=== PATIENT | male | born 1965 | race Hispanic/Latino ===

== ENCOUNTER 2017-03-09 21:23 | Observation (INO) | payer MEDICAID ==
[2017-03-09 21:23] VITALS: BMI 24.5
--- NOTE | 2017-03-09 21:42 | ED PDOC ---
Arrival/HPI - General Historian: Patient, EMS - History of Present Illness Time/Duration: Other (tonight) Symptom Onset: Gradual Symptom Course: Unchanged Activities at Onset: Light <Сергей Copeland - Last Filed: 03/10/17 06:00> <Baudilio Beach - Last Filed: 03/10/17 07:15> - General Chief Complaint: Alcohol Ingestion Time Seen by Provider: 03/09/17 21:35 - History of Present Illness Narrative History of Present Illness (Text): 03/09/17 21:30 Tera Valenzuela is a 51 year old male, whose past medical history includes alcohol abuse, who presents to the emergency department brought in by EMS for public intoxication tonight. Patient admits to drinking vodka. Patient states he currently feels fine. Patient denies any fever, chills, chest pain, shortness of breath, abdominal pain, nausea, vomiting, diarrhea, urinary symptoms, back pain, neck pain, headache, dizziness, or any other complaints. ( Сергей Copeland) Past Medical History - Provider Review Nursing Documentation Reviewed: Yes - Infectious Disease Hx of Infectious Diseases: None - Tetanus Immunization Tetanus Immunization: Unknown - Cardiac Hx Cardiac Disorders: No - Pulmonary Hx Respiratory Disorders: Yes (SEASONAL ALLERGIES) Hx Tuberculosis: No - Neurological Hx Neurological Disorder: Yes HX Cerebrovascular Accident: No Hx Dizziness: No Hx Paralysis: No Hx Seizures: No - HEENT Hx HEENT Disorder: No Other/Comment: deviated septum, enlarged turbinates - Renal Hx Renal Disorder: No - Endocrine/Metabolic Hx Endocrine Disorders: No - Hematological/Oncological Hx Anemia: Yes - Integumentary Hx Dermatological Disorder: No - Musculoskeletal/Rheumatological Hx Musculoskeletal Disorders: No - Gastrointestinal Hx Gastrointestinal Disorders: No - Genitourinary/Gynecological Hx Genitourinary Disorders: No - Psychiatric Hx Anxiety: No Hx Bipolar Disorder: No Hx Depression: No Hx Substance Use: No - Past Surgical History Past Surgical History: No Previous - Anesthesia Hx Anesthesia: Yes Hx Anesthesia Reactions: No Hx Malignant Hyperthermia: No - Suicidal Assessment Feels Threatened In Home Enviroment: No <Сергей Copeland - Last Filed: 03/10/17 06:00> Family/Social History - Physician Review Nursing Documentation Reviewed: Yes Family/Social History: Unknown Family HX Smoking Status: Never Smoked Hx Alcohol Use: Yes Frequency of alcohol use: Daily Hx Substance Use: No Hx Substance Use Treatment: No <Сергей Copeland - Last Filed: 03/10/17 06:00> Allergies/Home Meds <Сергей Copeland - Last Filed: 03/10/17 06:00> <Baudilio Beach - Last Filed: 03/10/17 07:15> Allergies/Adverse Reactions: Allergies No Known Allergies Allergy (Verified 03/09/17 21:30) hayfever allergies Home Medications: Home Meds Medication Instructions Recorded Confirmed Trazodone HCl 50 mg PO HS PRN 12/12/16 03/09/17 Review of Systems - Physician Review All systems were reviewed & negative as marked: Yes - Review of Systems Constitutional: Normal. absent: Fevers Eyes: Normal ENT: Normal Respiratory: Normal. absent: SOB, Cough Cardiovascular: Normal. absent: Chest Pain Gastrointestinal: Normal. absent: Abdominal Pain, Diarrhea, Nausea, Vomiting Genitourinary Male: Normal. absent: Dysuria, Frequency, Hematuria, Urinary Output Changes Musculoskeletal: Normal. absent: Back Pain, Neck Pain Skin: Normal. absent: Rash Neurological: Normal. absent: Headache, Dizziness Endocrine: Normal Hemo/Lymphatic: Normal Psychiatric: Other (+alcohol intoxication) <Сергей Copeland - Last Filed: 03/10/17 06:00> Physical Exam Vital Signs Reviewed: Yes Temperature: Afebrile Blood Pressure: Normal Pulse: Regular Respiratory Rate: Normal Appearance: Positive for: Well-Appearing, Comfortable Pain Distress: None Mental Status: Positive for: Alert and Oriented X 3 - Systems Exam Head: Present: Atraumatic, Normocephalic Pupils: Present: PERRL Extroacular Muscles: Present: EOMI Conjunctiva: Present: Normal Mouth: Present: Moist Mucous Membranes Neck: Present: Normal Range of Motion Respiratory/Chest: Present: Clear to Auscultation, Good Air Exchange. No: Respiratory Distress, Accessory Muscle Use Cardiovascular: Present: Regular Rate and Rhythm, Normal S1, S2. No: Murmurs Abdomen: Present: Normal Bowel Sounds. No: Tenderness, Distention, Peritoneal Signs Back: Present: Normal Inspection Upper Extremity: Present: Normal Inspection. No: Cyanosis, Edema Lower Extremity: Present: Normal Inspection. No: Edema Neurological: Present: GCS=15, CN II-XII Intact, Speech Normal Skin: Present: Warm, Dry, Normal Color. No: Rashes Psychiatric: Present: Alert, Oriented x 3, Normal Insight, Normal Concentration <Сергей oCpeland - Last Filed: 03/10/17 06:00> Medical Decision Making - EKG Interpretation Interpreted by ED Physician: Yes Type: 12 lead EKG <Сергей Copeland - Last Filed: 03/10/17 06:00> <Baudilio Beach - Last Filed: 03/10/17 07:15> ED Course and Treatment: 03/09/17 21:30 Impression: 51 year old male brought in for alcohol intoxication. Differential Diagnosis included but are not limited to: alcohol intoxication Plan: -- EKG -- Labs, alcohol level -- Reassess and disposition Prior Visits: Notes and results from previous visits were reviewed. On 12/21/2015, pt was seen in the emergency department for alcohol detox. Pt was admitted to the hospital for further evaluation. Progress Notes: (Сергей Copeland) 03/10/17 07:13 Signed out to me by , waiting for the patient to sober up. Patient is awake alert and wandering about the department in no distress. He states he is an alcoholic who stopped drinking, but relapsed. He will be discharged home. Follow-up with PMD. (Baudilio Beach) - Medication Orders Current Medication Orders: Discontinued Medications Lorazepam (Ativan) 2 mg IM ONCE ONE Stop: 03/10/17 00:51 Last Admin: 03/10/17 00:57 Dose: 2 mg Potassium Chloride (K-Dur 20 Meq Er Tab) 40 meq PO STAT STA Stop: 03/10/17 00:13 Last Admin: 03/10/17 00:57 Dose: 40 meq ED OBSERVATION Date of observation admission: 03/09/17 Time of observation admission: 21:45 <Сергей Copeland - Last Filed: 03/10/17 06:00> <Baudilio Beach - Last Filed: 03/10/17 07:15> - Observation admission statement Patient is being placed in observation because:: alcohol intoxication (Сергей [place]) - Goals of Observation Goals of observation are:: sobriety, observe for signs of withdrawal (Сергей Copeland) - Progress Note Progress Note: 03/09/17 21:45 Pt brought in for alcohol intoxication. Will observe pending sobriety. Reviewed EKG, sinus tachycardia at 106. No ST-segment elevations or depressions , no T-wave inversions, normal intervals. 03/09/17 23:45 Pt resting comfortably, no new complaints. 03/10/17 00:12 Pt with potassium of 3.0, K-dur ordered. 03/10/17 00:20 Pt yelling, insulting staff, attempting to abscond from ER. Code Thony called. Pt placed in restraints and medicated with Ativan. 03/10/17 02:20 Pt sleeping currently, in no acute distress. 03/10/17 04:20 Pt sleeping currently, in no acute distress. 03/10/17 06:20 Pt resting comfortably, no new complaints. 03/10/17 07:[address] Beach, pending sobriety, re-evaluation, and final disposition. (Сергей Copeland) 03/10/17 06:57 Case signed out to me by , pending sobriety, reevaluation and disposition. Patient resting comfortably with stable vitals. (Baudilio Beach) - Scribe Statement The provider has reviewed the documentation as recorded by the Scribe <Сергей Copeland - Last Filed: 03/10/17 06:00> <Baudilio Beach - Last Filed: 03/10/17 07:15> - Scribe Statement Terra Zee (Сергей Copeland) Provider Attestation: All medical record entries made by the Scribe were at my direction and personally dictated by me. I have reviewed the chart and agree that the record accurately reflects my personal performance of the history, physical exam, medical decision making, and the department course for this patient. I have also personally directed, reviewed, and agree with the discharge instructions and disposition. (Сергей Copeland) Disposition/Present on Arrival - Present on Arrival History of DVT/PE: No History of Uncontrolled Diabetes: No Urinary Catheter: No History of Decub. Ulcer: No History Surgical Site Infection Following: None <Сергей Copeland - Last Filed: 03/10/17 06:00> - Present on Arrival Any Indicators Present on Arrival: No History of DVT/PE: No History of Uncontrolled Diabetes: No Urinary Catheter: No History of Decub. Ulcer: No - Disposition Have Diagnosis and Disposition been Completed?: Yes Disposition Time: 07:14 Patient Plan: Discharge <Baudilio Beach - Last Filed: 03/10/17 07:15> - Disposition Diagnosis: Alcohol intoxication, Alcohol dependence, Alcohol abuse Disposition: HOME/ ROUTINE Condition: IMPROVED
[2017-03-09 22:18] VITALS: TEMP 98.1
[2017-03-09 22:49] LABS: HEMOGLOBIN 15.3 gm/dL (14.0-18.0); MEAN CELL VOLUME 91.6 fL (80.0-105.0); MEAN CORPUSCULAR HEMOGLOBIN 32.9 pg (25.0-35.0); MEAN CORPUSCULAR HGB CONC 35.9 g/dl (31.0-37.0); MEAN PLATELET VOLUME 8.3 fl (7.0-11.0); RBC 4.65 10^6/uL (3.5-6.1); RED CELL DISTRIBUTION WIDTH 12.9 % (11.5-14.5); WHITE BLOOD COUNT 5.4 10^3/ul (4.5-11.0)
[2017-03-09 22:53] LABS: ALB/GLOB RATIO 1.4 (1.1-1.8); ALBUMIN 4.1 g/dL (3.0-4.8); ALT/SGPT 32 U/L (7-56); AST/SGOT 31 U/L (15-59); BLOOD UREA NITROGEN 21 mg/dL (7-21); CALCIUM 8.8 mg/dL (8.4-10.5); GFR AFRICAN-AMERICAN > 60; GFR NON-AFRICAN AMERICAN > 60
[2017-03-10] MEDS ORDERED: Potassium Chloride 20 mEq ER Tab PO STA (00:12)
[2017-03-10 07:10] VITALS: BP 142/89; PULSE 100; RESP 18; O2SAT 95
--- NOTE | 2017-03-10 11:24 | CARD ---
APPROVED REPORT EKG Measurement Heart [id number] <Conclusion> Sinus tachycardia Otherwise normal ECG
== END 2017-03-10 07:19 | disposition home or self-care (01) ==
LOC: ED 21:23 → EROBSV 21:45
PROVIDERS: ADMIT Emergency Medicine; ATTEND Emergency Medicine
DX: F10.229 Alcohol dependence with intoxication, unspecified (principal); Y90.8 Blood alcohol level of 240 mg/100 ml or more
CPT/HCPCS: 36415; 80053; 80320; 85027; 93005; 96372; 99285; G0378; J2060

== ENCOUNTER 2017-05-13 14:31 | Inpatient (IN) | payer MEDICAID ==
[2017-05-13 14:41] VITALS: BMI 24.7
[2017-05-13] MEDS ORDERED: Sodium Chloride 0.9% 1,000 ML IV STA (15:05)
--- NOTE | 2017-05-13 15:12 | RAD ---
HISTORY: ETOH WITHDRAWAL COMPARISON: Chest x-ray performed 12/08/16 TECHNIQUE: Chest, one view. FINDINGS: LUNGS: No focal consolidation. Please note that chest x-ray has limited sensitivity for the detection of pulmonary masses. PLEURA: No significant pleural effusion identified. No definite pneumothorax . CARDIOVASCULAR: The cardiomediastinal silhouette appears within normal limits of size. OSSEOUS STRUCTURES: No acute osseous abnormality identified. VISUALIZED UPPER ABDOMEN: Unremarkable. OTHER FINDINGS: None. IMPRESSION: No focal consolidation, significant pleural effusion, or definite pneumothorax identified.
[2017-05-13] MEDS ORDERED: Multivitamin (MVI) 10 ML, Thiamine 100 MG, Folic Acid 1 MG in Sodium Chloride 0.9% 1,00... IV ONE ×2 (15:16→21:13)
[2017-05-13 15:33] LABS: BASO # 0.02 K/mm3 (0.0-2.0); BASO % 0.3 % (0.0-3.0); EOS % 0.3 % (1.5-5.0); GRAN # 5.51 (1.4-6.5); GRAN % 84.3 % (50.0-68.0); HEMATOCRIT 41.9 % (42.0-52.0); LYMPH # 0.6 (1.2-3.4); LYMPH % 8.7 % (22.0-35.0); MEAN CELL VOLUME 87.5 fl (80.0-105.0); MEAN CORPUSCULAR HGB CONC 37.7 g/dl (31.0-37.0); MEAN PLATELET VOLUME 8.7 fl (7.0-11.0); MONO # 0.4 (0.1-0.6); MONO % 6.4 % (1.0-6.0); RED CELL DISTRIBUTION WIDTH 11.8 % (11.5-14.5); WHITE BLOOD COUNT 6.5 10^3/ul (4.5-11.0)
--- NOTE | 2017-05-13 15:39 | ED PDOC ---
Arrival/HPI - General Chief Complaint: Alcohol Ingestion Time Seen by Provider: 05/13/17 14:52 Historian: Patient - History of Present Illness Narrative History of Present Illness (Text): 05/13/17 15:22 51yr old male with hx of depression and alcohol abuse presents today with visual and auditory hallucinations. pt states he was on a drinking binge and stopped drinking on . pt states for the past 3 days he has been having vomiting/diarrhea and the shakes. pt states he hasnt been sleeping for the past 3 days. pt denies fever/chills. denies cp or sob. denies tremors or weakness. pt states last night he started to notice auditory and visual hallucinations. denies any recent head injury. Symptom Onset: Gradual Symptom Course: Worsening Past Medical History - Provider Review Nursing Documentation Reviewed: Yes - Travel History Have you recently traveled outside [place] w/in the past 3 mons?: No - Infectious Disease Hx of Infectious Diseases: None - Tetanus Immunization Tetanus Immunization: Unknown - Cardiac Hx Cardiac Disorders: No - Pulmonary Hx Respiratory Disorders: Yes (SEASONAL ALLERGIES) Hx Tuberculosis: No - Neurological Hx Neurological Disorder: No HX Cerebrovascular Accident: No Hx Dizziness: No Hx Paralysis: No Hx Seizures: No - HEENT Hx HEENT Disorder: Yes Other/Comment: deviated septum, enlarged turbinates - Renal Hx Renal Disorder: No - Endocrine/Metabolic Hx Endocrine Disorders: No - Hematological/Oncological Hx Blood Disorders: Yes Hx Anemia: Yes - Integumentary Hx Dermatological Disorder: No - Musculoskeletal/Rheumatological Hx Musculoskeletal Disorders: No - Gastrointestinal Hx Gastrointestinal Disorders: No - Genitourinary/Gynecological Hx Genitourinary Disorders: No - Psychiatric Hx Anxiety: No Hx Bipolar Disorder: No Hx Depression: No Hx Substance Use: No - Past Surgical History Past Surgical History: No Previous - Anesthesia Hx Anesthesia: Yes Hx Anesthesia Reactions: No Hx Malignant Hyperthermia: No - Suicidal Assessment Feels Threatened In Home Enviroment: No Family/Social History - Physician Review Nursing Documentation Reviewed: Yes Family/Social History: Unknown Family HX Smoking Status: Never Smoked Hx Alcohol Use: Yes Hx Substance Use: No Hx Substance Use Treatment: No Allergies/Home Meds Allergies/Adverse Reactions: Allergies No Known Allergies Allergy (Verified 05/13/17 14:41) hayfever allergies Home Medications: Home Meds Medication Instructions Recorded Confirmed Trazodone HCl 150 mg PO HS PRN 12/12/16 05/13/17 Divalproex [Depakote DR] 1 tab PO DAILY 05/13/17 05/13/17 Fluticasone Propionate [Flonase] 1 spr IH DAILY 05/13/17 05/13/17 Ibuprofen [Motrin Tab] 600 mg PO DAILY 05/13/17 05/13/17 Loratadine [Claritin] 1 tab PO DAILY 05/13/17 05/13/17 Review of Systems - Review of Systems Constitutional: absent: Fatigue, Fevers ENT: absent: Sinus Congestion Respiratory: absent: SOB, Cough Cardiovascular: absent: Chest Pain, Palpitations Gastrointestinal: absent: Abdominal Pain, Diarrhea, Nausea, Vomiting Genitourinary Male: absent: Dysuria, Frequency, Hematuria Musculoskeletal: absent: Arthralgias, Back Pain, Neck Pain Skin: absent: Rash, Pruritis Neurological: absent: Headache, Dizziness Psychiatric: Depression. absent: Anxiety, Suicidal Ideation Physical Exam Vital Signs Reviewed: Yes Vital Signs Temp Pulse Resp BP Pulse Ox 05/13/17 19:04 105 H 20 154/98 H 96 05/13/17 17:12 88 18 147/90 98 05/13/17 14:52 97.7 F 120 H 18 132/90 95 Temperature: Afebrile Blood Pressure: Normal Pulse: Tachycardic Respiratory Rate: Normal Appearance: Positive for: Well-Appearing, Non-Toxic, Comfortable Pain Distress: None Mental Status: Positive for: Alert and Oriented X 3 - Systems Exam Head: Present: Atraumatic Mouth: Present: Moist Mucous Membranes, Other (no tongue fasciculations) Neck: Present: Normal Range of Motion Respiratory/Chest: Present: Clear to Auscultation, Good Air Exchange. No: Respiratory Distress, Accessory Muscle Use Cardiovascular: Present: Regular Rate and Rhythm, Normal S1, S2. No: Murmurs Abdomen: Present: Normal Bowel Sounds. No: Tenderness, Distention, Peritoneal Signs, Rebound, Guarding Back: Present: Normal Inspection Upper Extremity: Present: Normal ROM Lower Extremity: Present: Normal ROM Neurological: Present: GCS=15, Speech Normal, Gait Normal Skin: Present: Warm, Dry, Normal Color. No: Rashes Psychiatric: Present: Alert, Oriented x 3, Depressed Mood, Delusional, Hallucinations. No: Suicidal Ideation Medical Decision Making ED Course and Treatment: 05/13/17 16:06 Patient is nontoxic well-appearing in no distress. pt tachycardic on initial vitals. CBC WNL CMP WNL Tylenol WNL Salicylate WNL Alcohol level WNL Urine drug screen wnl UA; wnl cxr: wnl ekg sinus tachycardia at [address] elevations no QT prolongation pt given normal saline IV bolus and banana bag in the emergency room. Patient remains slightly tachycardic. Case was discussed with Danilo ford who discussed the case with Dr. Estrada. The patient should be treated for alcohol withdrawal with delirium and then can have evaluation by psychiatry. Due to patient's history of alcohol abuse/binging with recent sudden stoppage patient now with delirium. patient to be admitted to medicine for alcohol withdrawal with delirium. case discussed with dr. reed; accepts admission to tele for alcohol withdrawal with delirium and dehydration. ativan ordered IV. Impression; alcohol withdrawal, delirium, dehydration admit to tele. - Lab Interpretations Lab Results: 05/13/17 15:23 05/13/17 15:23 Lab Results 05/13/17 17:10: Urine Opiates Screen Negative, Urine Methadone Screen Negative, Ur Barbiturates Screen Negative, Ur Phencyclidine Scrn Negative, Ur Amphetamines Screen Negative, U Benzodiazepines Scrn Negative, U Oth Cocaine Metabols Negative, U Cannabinoids Screen Negative 05/13/17 17:10: Urine Color Yellow, Urine Appearance Clear, Urine pH 6.0, Ur Specific Cando 1.015, Urine Protein Trace H, Urine Glucose (UA) Negative, Urine Ketones Negative, Urine Blood Small H, Urine Nitrate Negative, Urine Bilirubin Negative, Urine Urobilinogen 0.2, Ur Leukocyte Esterase Negative, Urine RBC 1 - 3, Urine WBC 2 - 5, Ur Epithelial Cells 3 - 4, Urine Bacteria Mod 05/13/17 15:23: Valproic Acid 28 L 05/13/17 15:23: Alcohol, Quantitative < 10 05/13/17 15:23: Salicylates < 1 L, Acetaminophen < 10.0 L 05/13/17 15:23: WBC 6.5 D, RBC 4.79, Hgb 15.8, Hct 41.9 L, MCV 87.5, MCH 33.0, MCHC 37.7 H, RDW 11.8, Plt Count 152, MPV 8.7, Gran % 84.3 H, Lymph % (Auto) 8.7 L, [place] % (Auto) 6.4 H, Eos % (Auto) 0.3 L, Baso % (Auto) 0.3, Gran # 5.51, Lymph # 0.6 L, [place] # 0.4, Eos # 0.0, Baso # 0.02 05/13/17 15:23: Sodium 131 L, Potassium 3.3 L, Chloride 97 L, Carbon Dioxide 23 , Anion Gap 14, BUN 30 H, Creatinine 0.9, Est GFR ( Amer) > 60, Est GFR ( Non-Af Amer) > 60, Random Glucose 162 H, Calcium 9.1, Total Bilirubin 1.0, AST 48, ALT 43, Alkaline Phosphatase 66, Lactate Dehydrogenase 599, Total Creatine Kinase 384 H, CK-MB (CK-2) 3.7 H, CK-MB (CK-2) % Cancelled, Troponin I < 0.01, Total Protein 7.7, Albumin 4.6, Globulin 3.2, Albumin/Globulin Ratio 1.4 - RAD Interpretation Radiology Orders: 05/13/17 14:53 CHEST PORTABLE [RAD] Stat - Medication Orders Current Medication Orders: Divalproex Sodium (Depakote Dr (*Bid*)) 250 mg PO DAILY ALTHEA PRN Reason: Protocol Folic Acid (Folic Acid) 1 mg PO DAILY ALTHEA Lorazepam (Ativan) 2 mg IVP Q6H PRN; Protocol PRN Reason: Symptoms of alcohol withdrawl Thiamine HCl (Vitamin B1 Tab) 100 mg PO DAILY ALTHEA Discontinued Medications Diazepam (Valium) 5 mg PO STAT STA PRN Reason: Protocol Stop: 05/13/17 20:14 Sodium Chloride (Sodium Chloride 0.9%) 1,000 mls @ 999 mls/hr IV .Q1H1M STA Stop: 05/13/17 16:05 Last Admin: 05/13/17 15:27 Dose: 999 mls/hr Multivitamins/Vitamin C 10 ml/Thiamine HCl 100 mg/ Folic Acid 1 mg/ Sodium Chloride 1,011.2 mls @ 1,000 mls/hr IV .Q1H1M ONE Stop: 05/13/17 16:16 Last Admin: 05/13/17 16:02 Dose: 1,000 mls/hr Disposition/Present on Arrival - Present on Arrival Any Indicators Present on Arrival: No History of DVT/PE: No History of Uncontrolled Diabetes: No Urinary Catheter: No History of Decub. Ulcer: No History Surgical Site Infection Following: None - Disposition Have Diagnosis and Disposition been Completed?: Yes Diagnosis: Alcohol withdrawal delirium Disposition: HOSPITALIZED Disposition Time: 20:36 Patient Plan: Admission, Telemetry Condition: FAIR
[2017-05-13 15:46] LABS: ALB/GLOB RATIO 1.4 (1.1-1.8); ALKALINE PHOSPHATASE 66 U/L (38-126); ALT/SGPT 43 U/L (7-56); AST/SGOT 48 U/L (17-59); BLOOD UREA NITROGEN 30 mg/dL (7-21); CALCIUM 9.1 mg/dL (8.4-10.5); CARBON DIOXIDE 23 mmol/L (21-33); CHLORIDE 97 mmol/L (98-107); GFR AFRICAN-AMERICAN > 60; GLUCOSE,RANDOM 162 mg/dL (70-110); POTASSIUM 3.3 mmol/L (3.6-5.0); SODIUM 131 mmol/L (132-148); TOTAL PROTEIN 7.7 g/dL (5.8-8.3)
[2017-05-13 15:58] LABS: TROPONIN I < 0.01 ng/mL
--- NOTE | 2017-05-13 16:17 | CARD ---
APPROVED REPORT EKG Measurement Heart [id number] <Conclusion> Sinus tachycardia Nonspecific ST abnormality Abnormal ECG
[2017-05-13 17:16] LABS: URINE BILIRUBIN NEGATIVE (NEGATIVE); URINE BLOOD SMALL (NEGATIVE); URINE GLUCOSE (UA) NEGATIVE (NEGATIVE); URINE KETONE NEGATIVE (NEGATIVE); URINE LEUKOCYTE ESTERASE NEGATIVE Leu/uL (NEGATIVE); URINE PROTEIN TRACE mg/dL (<30 mg/dL); URINE UROBILINOGEN 0.2 E.U./dL (<1 E.U./dL)
[2017-05-13 17:31] LABS: URINE APPEARANCE CLEAR (CLEAR); URINE COLOR YELLOW (YELLOW)
[2017-05-13 17:37] LABS: URINE BACTERIA MOD (NEG)
--- NOTE | 2017-05-13 20:36 | CP.PCM.HP ---
<Esthela Farias - Last Filed: 05/13/17 21:14> History of Present Illness - History of Present Illness History of Present Illness: 51 year old bipolar male with a history of alcohol/narcotic use who presents with 4 days of not sleeping after going on alcohol binge from the Saturday of last week to , drinking about 2 gallons of vodka total, after being sober from alcohol for 50 some days. Patient is accompanied by a friend. Patient admits to visual hallucinations with some auditory hallucinations, with some tremors in the past 24 hours. Patient further states he takes Vivitrol for curbing his alcoholic (and quite possibly opiod/narcotic) tendency. He also states he is bipolar and takes Depakote for that, but at the same time has been taking Trazadone for insomnia. PMD: Doesn't know name, but goes to a clinic on [place] (or 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 Present on Admission - Present on Admission Any Indicators Present on Admission: No Review of Systems - Constitutional Constitutional: absent: Night Sweats Past Patient History - Infectious Disease Hx of Infectious Diseases: None - Tetanus Immunizations Tetanus Immunization: Unknown - Past Medical History & Family History Past Medical History?: Yes - Past Social History Smoking Status: Never Smoked - CARDIAC Hx Cardiac Disorders: No Hx Hypertension: No - PULMONARY Hx Tuberculosis: No - NEUROLOGICAL HX Cerebrovascular Accident: No Hx Seizures: No - HEENT Hx HEENT Problems: Yes Other/Comment: deviated septum, enlarged turbinates - RENAL Hx Chronic Kidney Disease: No - ENDOCRINE/METABOLIC Hx Endocrine Disorders: No - HEMATOLOGICAL/ONCOLOGICAL Hx Cancer: No Hx Human Immunodeficiency Virus (HIV): No - INTEGUMENTARY Hx Dermatological Problems: No - MUSCULOSKELETAL/RHEUMATOLOGICAL Hx Musculoskeletal Disorders: No - GASTROINTESTINAL Hx Gastrointestinal Disorders: No - GENITOURINARY/GYNECOLOGICAL Hx Sexually Transmitted Disorders: No - PSYCHIATRIC Hx Anxiety: No Hx Bipolar Disorder: No Hx Depression: No Hx Substance Use: No - SURGICAL HISTORY Hx Surgeries: Yes - ANESTHESIA Hx Anesthesia: Yes Hx Anesthesia Reactions: No Hx Malignant Hyperthermia: No Meds Allergies/Adverse Reactions: Allergies Allergy/AdvReac Type Severity Reaction Status Date / Time No Known Allergies Allergy Verified 05/13/17 22:45 Physical Exam - Constitutional Appears: Non-toxic, Other (emotional) - Head Exam Head Exam: ATRAUMATIC, NORMOCEPHALIC - Eye Exam Eye Exam: EOMI, Normal appearance, PERRL - ENT Exam ENT Exam: Mucous Membranes Moist, Normal Oropharynx - Neck Exam Neck exam: Positive for: Normal Inspection - Respiratory Exam Respiratory Exam: Clear to Auscultation Bilateral, NORMAL BREATHING PATTERN. absent: Wheezes - Cardiovascular Exam Cardiovascular Exam: RRR, +S1, +S2 - GI/Abdominal Exam GI & Abdominal Exam: Normal Bowel Sounds, Soft. absent: Rebound, Rigid - Exam Exam: NORMAL INSPECTION. absent: Scrotal Swelling, Uretheral Discharge - Extremities Exam Extremities exam: Positive for: normal capillary refill, normal inspection. Negative for: calf tenderness, joint swelling - Back Exam Back exam: NORMAL INSPECTION. absent: CVA tenderness (L), CVA tenderness (R) - Neurological Exam Neurological exam: CN II-XII Intact, Oriented x3, Reflexes Normal - Psychiatric Exam Psychiatric exam: Manic - Skin Skin Exam: Dry, Intact, Normal Color, Warm Results - Vital Signs Recent Vital Signs: Last Vital Signs Temp 97.7 F 05/13/17 14:52 Pulse 105 H 05/13/17 19:04 Resp 20 05/13/17 19:04 BP 154/98 H 05/13/17 19:04 Pulse Ox 96 05/13/17 19:04 - Labs Result Diagrams: 05/13/17 15:23 05/13/17 15:23 - EKG Data EKG Interpreted by: Myself EKG shows normal: Sinus rhythm Rate: Normal Assessment & Plan - Assessment and Plan (Free Text) Assessment: Alcohol withdrawal (72-96 hour) in a bipolar patient who presents with visual and auditory hallucinations for one day and reported tremors not evident on exam. Plan: 1) Alcohol withdrawal in bipolar patent with no history of seizures - Serum alcohol less than 10 mg/dL - Serum Salicylate not elevated - Serum Valproic Acid detectable - EKG (-) for arrhythmia - CXR shows no acute findings - 1 L of NS with multivitamin solution given in ED, i.e. Bananna Bag - 2 mg q6h Lorazepam IVP PRN for alcohol withdrawal symptoms - [facility] protocol, seizure precautions, telemetry monitoring - Psychiatry consulted Dr. Walker 2) Hyponatremia: 131 - NS at 120 ml/hr 3) Hypokalemia: 3.3 - Serum Magnesium ordered - Potassium 20 mEq PO given in ED, will replete based on AM labs 4) FEN Regular Diet NS 120 ml/hr Thiamine 100 mg PO starting in AM Folate 1 mg PO daily Multivitamin 1 tab PO daily DVT/GI prophylaxis: no need at this time - Date & Time Date: 05/13/17 Time: 21:22 <Leandra Valdes - Last Filed: 05/13/17 23:56> Results - Vital Signs Recent Vital Signs: Last Vital Signs Temp 97.7 F 05/13/17 14:52 Pulse 98 H 05/13/17 20:51 Resp 18 05/13/17 20:51 BP 150/95 H 05/13/17 20:51 Pulse Ox 98 05/13/17 20:51 - Labs Result Diagrams: 05/13/17 15:23 05/13/17 21:45 Labs: Laboratory Results - last 24 hr 05/13/17 21:45 Sodium 133 Potassium 3.6 Chloride 100 Carbon Dioxide 22 Anion Gap 15 BUN 24 H Creatinine 0.8 Est GFR ( Amer) > 60 Est GFR (Non-Af Amer) > 60 Random Glucose 102 Calcium 8.1 L Total Bilirubin 0.8 AST 47 ALT 35 Alkaline Phosphatase 52 Total Protein 6.5 Albumin 3.8 Globulin 2.7 Albumin/Globulin Ratio 1.4 Attending/Attestation - Attestation I have personally seen and examined this patient.: Yes I have fully participated in the care of the patient.: Yes I have reviewed all pertinent clinical information: Yes Notes (Text): 05/13/17 23:49 Addendum: O/E abdomen is non tender. Ext: no cyanosis,clubbing or edema EKG:Sinus tach 107/min Assessment:includes Hyponatremia and dehydration . Plan: includes GI and DVT prophylaxis as ordered.
[2017-05-13] MEDS ORDERED: Potassium Chloride 20 mEq ER Tab PO STA (20:37)
[2017-05-13] MEDS ORDERED: Sodium Chloride 0.9% 100 ML IV SCH (20:49)
[2017-05-13] MEDS ORDERED: Sodium Chloride 0.9% 1,000 ML IV SCH (21:15)
[2017-05-13 22:11] LABS: ALB/GLOB RATIO 1.4 (1.1-1.8); ALKALINE PHOSPHATASE 52 U/L (38-126); ALT/SGPT 35 U/L (7-56); AST/SGOT 47 U/L (17-59); BILIRUBIN,TOTAL 0.8 mg/dL (0.2-1.3); BLOOD UREA NITROGEN 24 mg/dL (7-21); CALCIUM 8.1 mg/dL (8.4-10.5); CARBON DIOXIDE 22 mmol/L (21-33); CHLORIDE 100 mmol/L (98-107); GFR AFRICAN-AMERICAN > 60; GLUCOSE,RANDOM 102 mg/dL (70-110); POTASSIUM 3.6 mmol/L (3.6-5.0); SODIUM 133 mmol/L (132-148); TOTAL PROTEIN 6.5 g/dL (5.8-8.3)
[2017-05-14 07:05] LABS: BASO # 0.02 K/mm3 (0.0-2.0); BASO % 0.5 % (0.0-3.0); EOS # 0.1 (0.0-0.7); EOS % 2.9 % (1.5-5.0); GRAN # 2.55 (1.4-6.5); GRAN % 67.7 % (50.0-68.0); HEMATOCRIT 40.4 % (42.0-52.0); LYMPH # 0.8 (1.2-3.4); LYMPH % 20.4 % (22.0-35.0); MEAN CELL VOLUME 89.8 fl (80.0-105.0); MEAN CORPUSCULAR HEMOGLOBIN 31.8 pg (25.0-35.0); MEAN CORPUSCULAR HGB CONC 35.4 g/dl (31.0-37.0); MEAN PLATELET VOLUME 8.8 fl (7.0-11.0); MONO # 0.3 (0.1-0.6); MONO % 8.5 % (1.0-6.0); RED CELL DISTRIBUTION WIDTH 12.1 % (11.5-14.5); WHITE BLOOD COUNT 3.8 10^3/ul (4.5-11.0)
--- NOTE | 2017-05-14 07:36 | CP.PCM.PN ---
<Esthela Farias - Last Filed: 05/14/17 14:44> Subjective - Date & Time of Evaluation Date of Evaluation: 05/14/17 Time of Evaluation: 07:35 - Subjective Subjective: Esthela Farias DO, PGY-1, Hospitalist Service Patient seen and examined at bedside. Patient is sleeping, snoring. Overnight, nurse reports a total of 4 mg of IVP Ativan given for alcohol withdrawal symptoms. Patient slept after being given 50 mg of Benadryl. Patient this morning reports he does not have tremors, visual, or auditory hallucinations. Objective - Vital Signs/Intake and Output Vital Signs (last 24 hours): Temp Pulse Resp BP Pulse Ox 97.8 F 90 20 108/82 98 05/14/17 05:45 05/14/17 05:45 05/14/17 05:45 05/14/17 05:45 05/14/17 05:45 Intake and Output: 05/14/17 05/14/17 06:59 18:59 Intake Total 1240 Balance 1240 - Medications Medications: Current Medications Chlordiazepoxide (Librium) 25 mg PO Q8 ALTHEA PRN Reason: Protocol Last Admin: 05/14/17 05:14 Dose: 25 mg Divalproex Sodium (Depakote Dr (*Bid*)) 250 mg PO DAILY [facility] PRN Reason: Protocol Enoxaparin Sodium (Lovenox) 40 mg SC DAILY [facility] PRN Reason: Protocol Folic Acid (Folic Acid) 1 mg PO DAILY ALTHEA Lorazepam (Ativan) 2 mg IVP Q6H PRN; Protocol PRN Reason: Symptoms of alcohol withdrawl Last Admin: 05/14/17 02:16 Dose: 2 mg Pantoprazole Sodium (Protonix Ec Tab) 40 mg PO DAILY ALTHEA Thiamine HCl (Vitamin B1 Tab) 100 mg PO DAILY ALTHEA - Labs Labs: 05/14/17 05:15 05/13/17 21:45 - Constitutional Appears: Well, No Acute Distress - Head Exam Head Exam: ATRAUMATIC, NORMOCEPHALIC - Eye Exam Eye Exam: EOMI, Normal appearance, PERRL - ENT Exam ENT Exam: Mucous Membranes Moist, Normal Oropharynx - Neck Exam Neck Exam: Normal Inspection - Respiratory Exam Respiratory Exam: Clear to Ausculation Bilateral, NORMAL BREATHING PATTERN. absent: Wheezes - Cardiovascular Exam Cardiovascular Exam: RRR, +S1, +S2 - GI/Abdominal Exam GI & Abdominal Exam: Soft, Normal Bowel Sounds. absent: Tenderness, Rebound - Extremities Exam Extremities Exam: Normal Capillary Refill, Normal Inspection. absent: Calf Tenderness, Joint Swelling - Back Exam Back Exam: NORMAL INSPECTION. absent: CVA tenderness (L), CVA tenderness (R) - Neurological Exam Neurological Exam: CN II-XII Intact, Oriented x3 - Psychiatric Exam Psychiatric exam: Normal Affect, Normal Mood - Skin Skin Exam: Dry, Intact, Normal Color, Warm Assessment and Plan - Assessment and Plan (Free Text) Assessment: 51 year old with a past medical history of alcohol abuse, bipolar disorder, and possible opiod dependence who presents with alcohol withdrawal (last drink 3.5 days from Day Of Admission) in a bipolar patient who presented with one day of tremors, visual and auditory hallucinations. Plan: 1) Alcohol withdrawal - 25 mg Librium q8h ALTHEA - 1 mg Ativan q6h PRN for MENA - Thiamine 100 mg, Folate 1 mg, MV PO - [facility] protocol, seizure precautions, telemetry monitoring - Psychiatry consulted Dr. Everett: left message with nurse on 5B. 2) Hyponatremia, resolved will continue to monitor via daily CMP. 3) Bipolar Disorder: psychiatry consulted, Dr. Everett - 250 Depakote BID 4) WBC and platelets dropped somewhat, likely alcohol-related, but will change discontinue heparin and protonix at this time 5) DVT/GI prophylaxis: SCD and Pepcid <Anant Lopez - Last Filed: 05/14/17 15:07> Objective - Vital Signs/Intake and Output Vital Signs (last 24 hours): Temp Pulse Resp BP Pulse Ox 98.6 F 97 H 20 131/88 98 05/14/17 12:00 05/14/17 12:00 05/14/17 12:00 05/14/17 12:00 05/14/17 05:45 Intake and Output: 05/14/17 05/14/17 06:59 18:59 Intake Total 1240 Balance 1240 - Medications Medications: Current Medications Chlordiazepoxide (Librium) 25 mg PO Q8 ALTHEA PRN Reason: Protocol Last Admin: 05/14/17 14:47 Dose: Not Given Divalproex Sodium (Depakoalexei Yanez (*Bid*)) 250 mg PO DAILY [facility] PRN Reason: Protocol Last Admin: 05/14/17 09:40 Dose: 250 mg Famotidine (Pepcid) 40 mg PO HS ALTHEA Folic Acid (Folic Acid) 1 mg PO DAILY [facility] Last Admin: 05/14/17 09:40 Dose: 1 mg Lorazepam (Ativan) 1 mg IVP Q6H PRN; Protocol PRN Reason: Symptoms of alcohol withdrawl Thiamine HCl (Vitamin B1 Tab) 100 mg PO DAILY [facility] Last Admin: 05/14/17 09:40 Dose: 100 mg - Labs Labs: 05/14/17 05:15 05/14/17 05:15 Attending/Attestation - Attestation I have personally seen and examined this patient.: Yes I have fully participated in the care of the patient.: Yes I have reviewed all pertinent clinical information, including history, physical exam and plan: Yes Notes (Text): 05/14/17 15:04 51 year old male with past medical history of alcohol abuse and bipolar disorder who presented with alcohol withdrawal and hallucinations. He is on librium and ativan prn for withdrawal symptoms. He is on multivitamin, folic acid and thiamine. He was counselled on alcohol abstinence. Psychiatry evaluation was requested and is pending. He is on depakote for history of bipolar disorder. Will replete and repeat lytes (potassium). Anant Lopez MD Hospitalist.
[2017-05-14 07:37] LABS: ALB/GLOB RATIO 1.3 (1.1-1.8); ALKALINE PHOSPHATASE 52 U/L (38-126); ALT/SGPT 38 U/L (7-56); AST/SGOT 40 U/L (17-59); BILIRUBIN,TOTAL 0.7 mg/dL (0.2-1.3); BLOOD UREA NITROGEN 20 mg/dL (7-21); CALCIUM 7.9 mg/dL (8.4-10.5); CARBON DIOXIDE 23 mmol/L (21-33); CHLORIDE 106 mmol/L (98-107); GFR AFRICAN-AMERICAN > 60; GLUCOSE,RANDOM 89 mg/dL (70-110); POTASSIUM 3.3 mmol/L (3.6-5.0); SODIUM 141 mmol/L (132-148)
[2017-05-14] MEDS: Potassium Chloride 20 mEq ER Tab PO SCH ×2 (09:40→13:49)
[2017-05-14] MEDS ORDERED: Enoxaparin 40 mg Syringe SC SCH (10:00)
[2017-05-14] MEDS ORDERED: Pantoprazole 40 mg EC Tab PO SCH (10:00)
[2017-05-14] MEDS ORDERED: Divalproex 250 mg DR (BID formulation) PO SCH (10:00)
[2017-05-14 15:49] LABS: ALB/GLOB RATIO 1.4 (1.1-1.8); ALKALINE PHOSPHATASE 56 U/L (38-126); ALT/SGPT 39 U/L (7-56); AST/SGOT 38 U/L (17-59); BILIRUBIN,TOTAL 0.5 mg/dL (0.2-1.3); BLOOD UREA NITROGEN 16 mg/dL (7-21); CALCIUM 8.3 mg/dL (8.4-10.5); CARBON DIOXIDE 24 mmol/L (21-33); CHLORIDE 103 mmol/L (98-107); GFR AFRICAN-AMERICAN > 60; GLUCOSE,RANDOM 102 mg/dL (70-110); SODIUM 136 mmol/L (132-148)
--- NOTE | 2017-05-14 16:38 | CON ---
DATE: IDENTIFYING INFORMATION: The patient is a 51-year-old white male admitted in alcohol withdrawal. HISTORY OF PRESENT ILLNESS: The patient also apparently carries a diagnosis of bipolar disorder. He indicated he had not slept in 4 days and had been drinking, which represented a relapse of his alcohol use, this around the time of the of his mother this weekend. He has been maintained on naltrexone by the psychiatrist in clinic at the [facility] and has an appointment scheduled for today. He reportedly had been sober for about 50 days. I have reviewed the patient's case with him and with his sponsor. The patient had been agitated last night. According to nursing, he has been having delusions and visual hallucinations, but these are abating (but not completely gone at this juncture). The patient has also been maintained on Depakote. In the past, the patient had a nasal septal repair. 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 He had been for 13 years, but this marriage ended because of his heavy vodka use, which started in his teens. He has a 17-year-old son. The patient's parents reside in [place]. Under the influence of alcohol, he started hearing woman's voices and felt that this woman along with others were staying in his apartment. The intensity of this has abated significantly, but still has some residue. As I am recommending that the patient be maintained here for another day. He is presently receiving Ativan p.r.n. and Librium 25 mg q.8 hours schedule. A CBC and differential today showed lower white count 3.8 and lower hematocrit 40.4. Biochemical profile shows slightly lowered calcium of 7.9 and potassium of 3.3. Drug screen was negative. Blood pressure 108/82, pulse 82, temperature , respiratory rate 20. DIAGNOSES: Alcohol withdrawal, alcohol use disorder, adjustment disorder with features of depression (bereavement). I would recommend monitoring the patient for another 24 hours for further abatement of his delusional thinking, which is presumably secondary or a manifestation with alcohol withdrawal. Todd Estrada MD/ PhD
[2017-05-14 16:53] LABS: BASO # 0.02 K/mm3 (0.0-2.0); BASO % 0.3 % (0.0-3.0); EOS # 0.1 (0.0-0.7); EOS % 1.7 % (1.5-5.0); GRAN # 5.66 (1.4-6.5); GRAN % 81.7 % (50.0-68.0); HEMATOCRIT 38.8 % (42.0-52.0); LYMPH # 0.8 (1.2-3.4); LYMPH % 10.8 % (22.0-35.0); MEAN CELL VOLUME 89.4 fl (80.0-105.0); MEAN CORPUSCULAR HGB CONC 35.8 g/dl (31.0-37.0); MEAN PLATELET VOLUME 8.3 fl (7.0-11.0); MONO # 0.4 (0.1-0.6); MONO % 5.5 % (1.0-6.0); RED CELL DISTRIBUTION WIDTH 12.1 % (11.5-14.5); WHITE BLOOD COUNT 6.9 10^3/ul (4.5-11.0)
[2017-05-15 06:29] LABS: BASO # 0.03 K/mm3 (0.0-2.0); BASO % 0.6 % (0.0-3.0); EOS # 0.2 (0.0-0.7); EOS % 3.7 % (1.5-5.0); GRAN # 3.46 (1.4-6.5); GRAN % 70.9 % (50.0-68.0); LYMPH # 0.9 (1.2-3.4); LYMPH % 17.4 % (22.0-35.0); MEAN CELL VOLUME 90.7 fl (80.0-105.0); MEAN CORPUSCULAR HEMOGLOBIN 32.1 pg (25.0-35.0); MEAN CORPUSCULAR HGB CONC 35.4 g/dl (31.0-37.0); MEAN PLATELET VOLUME 8.6 fl (7.0-11.0); MONO # 0.4 (0.1-0.6); MONO % 7.4 % (1.0-6.0); RED CELL DISTRIBUTION WIDTH 12.2 % (11.5-14.5); WHITE BLOOD COUNT 4.9 10^3/ul (4.5-11.0)
[2017-05-15 06:44] LABS: ALB/GLOB RATIO 1.4 (1.1-1.8); ALKALINE PHOSPHATASE 84 U/L (38-126); ALT/SGPT 52 U/L (7-56); AST/SGOT 34 U/L (17-59); BILIRUBIN,TOTAL 0.4 mg/dL (0.2-1.3); BLOOD UREA NITROGEN 14 mg/dL (7-21); CALCIUM 8.6 mg/dL (8.4-10.5); CARBON DIOXIDE 26 mmol/L (21-33); CHLORIDE 102 mmol/L (98-107); GFR AFRICAN-AMERICAN > 60; GLUCOSE,RANDOM 103 mg/dL (70-110); POTASSIUM 3.8 mmol/L (3.6-5.0); SODIUM 138 mmol/L (132-148); TOTAL PROTEIN 6.1 g/dL (5.8-8.3)
[2017-05-15 06:55] VITALS: O2SAT 98
[2017-05-15] MEDS ORDERED: Multivitamin Therapeutic Tab PO SCH (08:00)
--- NOTE | 2017-05-15 12:53 | CP.PCM.DIS ---
<Esthela Farias - Last Filed: 05/15/17 21:08> Provider - Provider Date of Admission: 05/13/17 19:39 Attending physician: Anant Lopez MD Primary care physician: Suhas Petty Jr, MD Consults: Dr. Estrada and Dr. Everett Time Spent in preparation of Discharge (in minutes): 43 Diagnosis - Discharge Diagnosis (1) Bereavement Status: Acute Hospital Course - Lab Results Lab Results: Most Recent Lab Values WBC 4.9 10^3/ul (4.5-11.0) D 05/15/17 05:30 RBC 4.52 10^6/uL (3.5-6.1) 05/15/17 05:30 Hgb 14.5 g/dL (14.0-18.0) 05/15/17 05:30 Hct 41.0 % (42.0-52.0) L 05/15/17 05:30 MCV 90.7 fl (80.0-105.0) 05/15/17 05:30 MCH 32.1 pg (25.0-35.0) 05/15/17 05:30 MCHC 35.4 g/dl (31.0-37.0) 05/15/17 05:30 RDW 12.2 % (11.5-14.5) 05/15/17 05:30 Plt Count 109 10^3/uL (120.0-450.0) L 05/15/17 05:30 MPV 8.6 fl (7.0-11.0) 05/15/17 05:30 Gran % 70.9 % (50.0-68.0) H 05/15/17 05:30 Lymph % (Auto) 17.4 % (22.0-35.0) L 05/15/17 05:30 [place] % (Auto) 7.4 % (1.0-6.0) H 05/15/17 05:30 Eos % (Auto) 3.7 % (1.5-5.0) 05/15/17 05:30 Baso % (Auto) 0.6 % (0.0-3.0) 05/15/17 05:30 Gran # 3.46 (1.4-6.5) 05/15/17 05:30 Lymph # 0.9 (1.2-3.4) L 05/15/17 05:30 [place] # 0.4 (0.1-0.6) 05/15/17 05:30 Eos # 0.2 (0.0-0.7) 05/15/17 05:30 Baso # 0.03 K/mm3 (0.0-2.0) 05/15/17 05:30 Sodium 138 mmol/L (132-148) 05/15/17 05:30 Potassium 3.8 mmol/L (3.6-5.0) 05/15/17 05:30 Chloride 102 mmol/L (98-107) 05/15/17 05:30 Carbon Dioxide 26 mmol/L (21-33) 05/15/17 05:30 Anion Gap 14 (10-20) 05/15/17 05:30 BUN 14 mg/dL (7-21) 05/15/17 05:30 Creatinine 0.7 mg/dL (0.5-1.4) 05/15/17 05:30 Est GFR ( Amer) > 60 05/15/17 05:30 Est GFR (Non-Af Amer) > 60 05/15/17 05:30 Random Glucose 103 mg/dL (70-110) 05/15/17 05:30 Calcium 8.6 mg/dL (8.4-10.5) 05/15/17 05:30 Magnesium 2.3 mg/dL (1.7-2.2) H 05/13/17 15:23 Total Bilirubin 0.4 mg/dL (0.2-1.3) 05/15/17 05:30 AST 34 U/L (17-59) 05/15/17 05:30 ALT 52 U/L (7-56) 05/15/17 05:30 Alkaline Phosphatase 84 U/L (38-126) 05/15/17 05:30 Lactate Dehydrogenase 599 U/L (333-699) 05/13/17 15:23 Total Creatine Kinase 384 U/L (35-230) H 05/13/17 15:23 CK-MB (CK-2) 3.7 ng/mL (0.0-3.6) H 05/13/17 15:23 CK-MB (CK-2) % Cancelled 05/13/17 15:23 Troponin I < 0.01 ng/mL 05/13/17 15:23 Total Protein 6.1 g/dL (5.8-8.3) 05/15/17 05:30 Albumin 3.6 g/dL (3.0-4.8) 05/15/17 05:30 Globulin 2.6 gm/dL 05/15/17 05:30 Albumin/Globulin Ratio 1.4 (1.1-1.8) 05/15/17 05:30 Urine Color Yellow (YELLOW) 05/13/17 17:10 Urine Appearance Clear (CLEAR) 05/13/17 17:10 Urine pH 6.0 (4.7-8.0) 05/13/17 17:10 Ur Specific [place] 1.015 (1.005-1.035) 05/13/17 17:10 Urine Protein Trace mg/dL (<30 mg/dL) H 05/13/17 17:10 Urine Glucose (UA) Negative mg/dL (NEGATIVE) 05/13/17 17:10 Urine Ketones Negative mg/dL (NEGATIVE) 05/13/17 17:10 Urine Blood Small (NEGATIVE) H 05/13/17 17:10 Urine Nitrate Negative (NEGATIVE) 05/13/17 17:10 Urine Bilirubin Negative (NEGATIVE) 05/13/17 17:10 Urine Urobilinogen 0.2 E.U./dL (<1 E.U./dL) 05/13/17 17:10 Ur Leukocyte Esterase Negative Rey/uL (NEGATIVE) 05/13/17 17:10 Urine RBC 1 - 3 /hpf (0-2) 05/13/17 17:10 Urine WBC 2 - 5 /hpf (0-6) 05/13/17 17:10 Ur Epithelial Cells 3 - 4 /hpf (0-5) 05/13/17 17:10 Urine Bacteria Mod (NEG) 05/13/17 17:10 Salicylates < 1 mg/dL (2.0-20.0) L 05/13/17 15:23 Urine Opiates Screen Negative (NEGATIVE) 05/13/17 17:10 Urine Methadone Screen Negative (NEGATIVE) 05/13/17 17:10 Acetaminophen < 10.0 ug/ml (10.0-20.0) L 05/13/17 15:23 Ur Barbiturates Screen Negative (NEGATIVE) 05/13/17 17:10 Valproic Acid 28 ug/mL (50.0-100.0) L 05/13/17 15:23 Ur Phencyclidine Scrn Negative (NEGATIVE) 05/13/17 17:10 Ur Amphetamines Screen Negative (NEGATIVE) 05/13/17 17:10 U Benzodiazepines Scrn Negative (NEGATIVE) 05/13/17 17:10 U Oth Cocaine Metabols Negative (NEGATIVE) 05/13/17 17:10 U Cannabinoids Screen Negative (NEGATIVE) 05/13/17 17:10 Alcohol, Quantitative < 10 mg/dL (0-10) 05/13/17 15:23 - Hospital Course Hospital Course: 51 year old white male who suffers from alcohol use disorder and possible bipolar disorder who relapsed after hearing his mother passed on 05/04. After being sober for 50 some days, he drank vodka from Saturday- (2 gallons approximately). After he stopped drinking he developed some tremor, visual and auditory hallucinations that were most severe on day. The patient presented with an AA sponsor to the ED. He was initially tachycardic, hypertensive and labs showed hyponatremia , hypokalemic. Blood alcohol was negative, and other toxicology was negative as well. After NS administration, K repletion, and treating his Alcohol withdrawal symptoms he became hemodynamically stable and his electrolyte abnormalities resolved. He was started on Ativan/Librium, and tapered off gradually during the course of his stay. His visual, auditory, hallucinations abated; however the patient still, on my final discussion with him, was disturbed by the hallucination/delusions, and felt a sense of derealization. Psychiatry was consulted also and once the patient was medically stable, he was agreeable to transitioning to the psychiatric unit here in [facility]. - Date & Time of H&P Date of H&P: 05/15/17 Time of H&P: 10:30 Discharge Exam - Head Exam Head Exam: ATRAUMATIC, NORMOCEPHALIC - Eye Exam Eye Exam: EOMI, Normal appearance, PERRL - ENT Exam ENT Exam: Mucous Membranes Moist, Normal Oropharynx - Neck Exam Neck exam: Normal Inspection - Respiratory Exam Respiratory Exam: Clear to PA & Lateral, NORMAL BREATHING PATTERN - Cardiovascular Exam Cardiovascular Exam: RRR, +S1, +S2 - GI/Abdominal Exam GI & Abdominal Exam: Normal Bowel Sounds, Soft. absent: Guarding, Rebound - Back Exam Back exam: NORMAL INSPECTION. absent: CVA tenderness (L), CVA tenderness (R) - Neurological Exam Neurological exam: Alert, CN II-XII Intact, Oriented x3 - Psychiatric Exam Psychiatric exam: Depressed - Skin Skin Exam: Dry, Intact, Normal Color, Warm Discharge Plan - Follow Up Plan Condition: FAIR Disposition: DISCHARGE TO [facility] Instructions: Dehydration (GEN), Alcohol Intoxication (GEN), Acute Delirium ( GEN), Alcohol Withdrawal (GEN) Additional Instructions: 1) Continue to remain alcohol abstinent and maintain the social support you have. 2) Please follow up with Dr. Petty within one week of discharge date from [facility]. 3) Please your psychiatrist, Dr. Navarro, within one week of discharge date from [facility] 4) If any symptoms that you experienced return, please go to nearest ED. Referrals: Suhas Petty Jr., MD [Primary Care Provider] - <Anant Lopez - Last Filed: 05/16/17 08:09> Provider - Provider Date of Admission: 05/13/17 19:39 Attending physician: Anant Lopez MD Primary care physician: Suhas Petty Jr, MD Hospital Course - Lab Results Lab Results: Most Recent Lab Values WBC 4.9 10^3/ul (4.5-11.0) D 05/15/17 05:30 RBC 4.52 10^6/uL (3.5-6.1) 05/15/17 05:30 Hgb 14.5 g/dL (14.0-18.0) 05/15/17 05:30 Hct 41.0 % (42.0-52.0) L 05/15/17 05:30 MCV 90.7 fl (80.0-105.0) 05/15/17 05:30 MCH 32.1 pg (25.0-35.0) 05/15/17 05:30 MCHC 35.4 g/dl (31.0-37.0) 05/15/17 05:30 RDW 12.2 % (11.5-14.5) 05/15/17 05:30 Plt Count 109 10^3/uL (120.0-450.0) L 05/15/17 05:30 MPV 8.6 fl (7.0-11.0) 05/15/17 05:30 Gran % 70.9 % (50.0-68.0) H 05/15/17 05:30 Lymph % (Auto) 17.4 % (22.0-35.0) L 05/15/17 05:30 [place] % (Auto) 7.4 % (1.0-6.0) H 05/15/17 05:30 Eos % (Auto) 3.7 % (1.5-5.0) 05/15/17 05:30 Baso % (Auto) 0.6 % (0.0-3.0) 05/15/17 05:30 Gran # 3.46 (1.4-6.5) 05/15/17 05:30 Lymph # 0.9 (1.2-3.4) L 05/15/17 05:30 [place] # 0.4 (0.1-0.6) 05/15/17 05:30 Eos # 0.2 (0.0-0.7) 05/15/17 05:30 Baso # 0.03 K/mm3 (0.0-2.0) 05/15/17 05:30 Sodium 138 mmol/L (132-148) 05/15/17 05:30 Potassium 3.8 mmol/L (3.6-5.0) 05/15/17 05:30 Chloride 102 mmol/L (98-107) 05/15/17 05:30 Carbon Dioxide 26 mmol/L (21-33) 05/15/17 05:30 Anion Gap 14 (10-20) 05/15/17 05:30 BUN 14 mg/dL (7-21) 05/15/17 05:30 Creatinine 0.7 mg/dL (0.5-1.4) 05/15/17 05:30 Est GFR ( Amer) > 60 05/15/17 05:30 Est GFR (Non-Af Amer) > 60 05/15/17 05:30 Random Glucose 103 mg/dL (70-110) 05/15/17 05:30 Calcium 8.6 mg/dL (8.4-10.5) 05/15/17 05:30 Magnesium 2.3 mg/dL (1.7-2.2) H 05/13/17 15:23 Total Bilirubin 0.4 mg/dL (0.2-1.3) 05/15/17 05:30 AST 34 U/L (17-59) 05/15/17 05:30 ALT 52 U/L (7-56) 05/15/17 05:30 Alkaline Phosphatase 84 U/L (38-126) 05/15/17 05:30 Lactate Dehydrogenase 599 U/L (333-699) 05/13/17 15:23 Total Creatine Kinase 384 U/L (35-230) H 05/13/17 15:23 CK-MB (CK-2) 3.7 ng/mL (0.0-3.6) H 05/13/17 15:23 CK-MB (CK-2) % Cancelled 05/13/17 15:23 Troponin I < 0.01 ng/mL 05/13/17 15:23 Total Protein 6.1 g/dL (5.8-8.3) 05/15/17 05:30 Albumin 3.6 g/dL (3.0-4.8) 05/15/17 05:30 Globulin 2.6 gm/dL 05/15/17 05:30 Albumin/Globulin Ratio 1.4 (1.1-1.8) 05/15/17 05:30 Urine Color Yellow (YELLOW) 05/13/17 17:10 Urine Appearance Clear (CLEAR) 05/13/17 17:10 Urine pH 6.0 (4.7-8.0) 05/13/17 17:10 Ur Specific [place] 1.015 (1.005-1.035) 05/13/17 17:10 Urine Protein Trace mg/dL (<30 mg/dL) H 05/13/17 17:10 Urine Glucose (UA) Negative mg/dL (NEGATIVE) 05/13/17 17:10 Urine Ketones Negative mg/dL (NEGATIVE) 05/13/17 17:10 Urine Blood Small (NEGATIVE) H 05/13/17 17:10 Urine Nitrate Negative (NEGATIVE) 05/13/17 17:10 Urine Bilirubin Negative (NEGATIVE) 05/13/17 17:10 Urine Urobilinogen 0.2 E.U./dL (<1 E.U./dL) 05/13/17 17:10 Ur Leukocyte Esterase Negative Rey/uL (NEGATIVE) 05/13/17 17:10 Urine RBC 1 - 3 /hpf (0-2) 05/13/17 17:10 Urine WBC 2 - 5 /hpf (0-6) 05/13/17 17:10 Ur Epithelial Cells 3 - 4 /hpf (0-5) 05/13/17 17:10 Urine Bacteria Mod (NEG) 05/13/17 17:10 Salicylates < 1 mg/dL (2.0-20.0) L 05/13/17 15:23 Urine Opiates Screen Negative (NEGATIVE) 05/13/17 17:10 Urine Methadone Screen Negative (NEGATIVE) 05/13/17 17:10 Acetaminophen < 10.0 ug/ml (10.0-20.0) L 05/13/17 15:23 Ur Barbiturates Screen Negative (NEGATIVE) 05/13/17 17:10 Valproic Acid 28 ug/mL (50.0-100.0) L 05/13/17 15:23 Ur Phencyclidine Scrn Negative (NEGATIVE) 05/13/17 17:10 Ur Amphetamines Screen Negative (NEGATIVE) 05/13/17 17:10 U Benzodiazepines Scrn Negative (NEGATIVE) 05/13/17 17:10 U Oth Cocaine Metabols Negative (NEGATIVE) 05/13/17 17:10 U Cannabinoids Screen Negative (NEGATIVE) 05/13/17 17:10 Alcohol, Quantitative < 10 mg/dL (0-10) 05/13/17 15:23 Attending/Attestation - Attestation I have personally seen and examined this patient.: Yes I have fully participated in the care of the patient.: Yes I have reviewed all pertinent clinical information, including history, physical exam and plan: Yes Notes (Text): 05/15/17 51 year old male with past medical history of alcohol abuse and bipolar disorder who presented with alcohol withdrawal and hallucinations. His symptoms improved with libium and ativan as needed. He was on multivitamin , folic acid and thiamine. He was counselled on alcohol abstinence. He was seen and evaluated by psychiatry and accepted to go up to 5b psychiatric unit. We will follow him from there. Anant Lopez MD Hospitalist.
[2017-05-15 18:01] VITALS: BP 138/90; PULSE 79; RESP 18; TEMP 98.8
== END 2017-05-15 19:12 | DRG 750 ==
LOC: ED 14:31 → ERH 19:39 → 2RNO 21:15
PROVIDERS: ADMIT Internal Medicine; ATTEND Internal Medicine
DX: F10.231 Alcohol dependence with withdrawal delirium (principal); E86.0 Dehydration; F31.9 Bipolar disorder, unspecified; I10 Essential (primary) hypertension; E87.1 Hypo-osmolality and hyponatremia; E87.6 Hypokalemia; F22 Delusional disorders; G47.00 Insomnia, unspecified; F43.21 Adjustment disorder with depressed mood; J34.2 Deviated nasal septum; Z63.4 Disappearance and death of family member; J30.2 Other seasonal allergic rhinitis; R40.2412 Glasgow coma scale score 13-15, at arrival to emergency department

== ENCOUNTER 2017-05-15 19:11 | Inpatient (IN) | payer MEDICAID ==
[2017-05-15 19:53] VITALS: BMI 25.0
[2017-05-15] MEDS ORDERED: Alum-Mag Hydrox-Simethicone Susp (30 mL) PO PRN (20:02)
[2017-05-15] MEDS ORDERED: Magnesium Hydroxide Susp 30 ml UD PO PRN (20:02)
--- NOTE | 2017-05-15 21:52 | PCM.BM ---
<Howie George - Last Filed: 05/15/17 21:50> Treatment Plan Problems - Problems identified on initial assessmt Delusions Date Initiated: 05/15/17 Time Initiated: 21:51 Assessment reference: NA Status: Active Priority: 1 Hopelessness Date Initiated: 05/15/17 Time Initiated: 21:51 Assessment reference: NA Status: Active Priority: 2 Altered Thought Process Date Initiated: 05/15/17 Time Initiated: 21:51 Assessment reference: NA Priority: 3 Ineffective Coping Date Initiated: 05/15/17 Time Initiated: 21:51 Assessment reference: NA Priority: 4 Altered Sleep Patterns Date Initiated: 05/15/17 Time Initiated: 21:51 Assessment reference: NA Status: Active Priority: 5 Treatment assets and liabiliti Patient Assests: cooperative, insightful, ADL independent, physically healthy, cognitively intact Patient Liabilities: live alone, financial problems, poor support system, substance abuse - Milieu Protocol Maintain good personal hygiene: daily Encourage regular showers Maintain personal safety: every shift Educate patient to report safety concerns to staff, every shift Monitor environment for contraband/sharps Medication safety: Monitor for expected outcome, potential side effects: every shift, Assess barriers to learning: every shift, Assess readiness for medication education: every shift Discharge/Continuing Care - Education Needs Education Needs: Patient Medication, Patient Diagnosis/Disease Process, Patient Coping Skills - Discharge Discharge Criteria: Tolerates medication w/o severe side effects, Normal sleep pattern, Ability to care for self, No longer exhibiting s/s of withdrawal, Reduction of target symptoms Discharge to:: Home <Marco A Bragg - Last Filed: 05/17/17 12:35> - Milieu Protocol Maintain good personal hygiene: daily Encourage regular showers, daily Remind patient to perform daily oral care, daily Assist patient to perform ADL's Maintain personal safety: daily Educate patient to report safety concerns to staff, daily Monitor environment for contraband/sharps Medication safety: Monitor for expected outcome, potential side effects: daily, Assess barriers to learning: daily, Assess readiness for medication education: daily Discharge/Continuing Care - Education Needs Education Needs: Patient Medication, Patient Diagnosis/Disease Process, Patient Coping Skills, Patient Community resources, Patient Activities of Daily Living, Patient Uses of Medical Equipment, Patient Personal Hygiene/Grooming, Patient Aftercare Safety Plan, Patient Other <Marguerite Siddiqui Last Filed: 05/17/17 14:00> - Diagnosis (1) Bipolar II disorder Status: Acute Interventions: 05/16/17 10:31 Psychoeducation Psychopharmacology/adjustment of medications as needed/ monitoring possible side effects Monitor blood level of mood stabilizers Evaluate pt on daily basis Compliance with medications and follow up appointments Suicide and homicide risk assessment and prevention, coping strategies, safety plan Relapse prevention Reduction of symptoms Improve functional status Family involvement educate pt about cognitive behavioral therapy (2) Alcohol dependence Status: Acute Interventions: 05/16/17 10:32 Monitoring withdrawal symptoms Medical detoxification Pharmacotherapy for alcohol dependence Maintaining sobriety Relapse prevention Possible rehabilitation Motivational interviewing 12-step programs: AA meetings as outpatient <Kat Rosenbaum Y - Last Filed: 05/20/17 09:05>
--- NOTE | 2017-05-16 04:10 | CON ---
HISTORY OF PRESENT ILLNESS: The patient is a 51-year-old male who reports has history of bipolar disorder, currently under the care of psychiatrist at [facility]. The patient was admitted on the medical side for evaluation of alcohol withdrawal, delirium with hallucinations. Psych consult was called for evaluation of mood symptoms as well as withdrawal symptoms and medication management. The patient was seen and examined today. The patient presented to be alert and oriented, pleasant and cooperative. The patient reported that his primary psychiatrist started on Depakote recently. The patient reports that he did not notice any changes after Depakote was started. The patient reported that he was drinking excessively but stopped drinking on last Saturday. Approximately on Saturday, the patient started to have visual hallucinations. The patient said that it is very well-formed and believable hallucinations including his family and friends. The patient realized that he had lost touch with reality and brought himself to the hospital accompanied by his sponsor from . The patient said that he was drinking because he had manic episodes, and the patient reported that he had mind racing, multitasking, was not sleeping for past 4 days. The patient reported that since he had feeling that he wanted to end up his life, but denied any intention or plan. The patient also said that recently Vivitrol was started on him and he continued drinking on that medication. The patient also reported that he had bad news that his mother is dying back in [place] and was not able to go there. Overall, the patient presented to be depressed, anxious, and psychotic. The patient denied previous suicidal attempts. Denied admission to the psychiatric inpatient unit, but reported that he was in the detox units before. PHYSICAL EXAMINATION: VITAL SIGNS: Stable. Temperature 98.5, respirations 20, pulse is 90, blood pressure 136/93. MEDICATIONS: Reviewed. Librium was started 25 mg 3 times a day scheduled, Pepcid, folic acid, Ativan, IV push as needed p.r.n., thiamine, trazodone 50 mg at the nighttime as scheduled. LABORATORY DATA: Reviewed. Chemistry reviewed. Urinalysis reviewed. Toxicology reviewed. Alcohol content was less than 10. Valproic acid was 28. Reports reviewed as well. MENTAL STATUS EXAMINATION: The patient presented to be alert and oriented, mild trace on upper extremities, intermittent eye contact. Speech was overproductive. Thought process circumstantial. Thought content: The patient denied visual, auditory or tactile hallucinations. Denies paranoid ideation at the moment of the interview, but the patient was having visual and auditory hallucinations prior to coming to the hospital. Insight and judgement are fair. Impulses are well controlled. IMPRESSION: Rule out alcohol withdrawal delirium with hallucinations. The patient has history of bipolar disorder. PLAN: Decided over the admission to the psychiatric inpatient unit. The patient is warned to accept that offer. The patient had benefits from other psychotic medication, second generation for more stabilization of psychosis. The patient was educated about Seroquel, the patient was willing to try this medication. The patient also wants to continue Librium. The patient is on Vivitrol variety. For depression and anxiety, we need to discuss options more. For insomnia, Remeron could be a good choice for the patient. The patient signed consent for treatment. We will transfer the patient to the psychiatric inpatient unit for further evaluation and stabilization. Thanking you very much for letting me to participate in care of your patient. Marguerite Siddiqui MD
[2017-05-16 08:17] LABS: CHOLESTEROL 187 mg/dL (130-200); GLUCOSE,FASTING 86 mg/dL (65-110)
[2017-05-16 08:37] LABS: FREE T4 1.09 ng/dL (0.78-2.19)
[2017-05-16 08:50] LABS: THYROID STIMULATING HORMONE 3.7 mIU/mL (0.46-4.68)
[2017-05-16] MEDS: Multivitamin With Minerals Tab PO SCH (09:19)
--- NOTE | 2017-05-16 11:54 | CP.PCM.CON ---
<Esthela Farias - Last Filed: 05/17/17 18:11> History of Present Illness - History of Present Illness History of Present Illness: 51 year old white male who suffers from alcohol use disorder and possible bipolar disorder who relapsed after hearing his mother passed on 05/04. After being sober for 50 some days, he drank vodka from Saturday- (2 gallons approximately). After he stopped drinking he developed some tremor, visual and auditory hallucinations that were most severe on Labor day. The patient presented with an AA sponsor to the ED. He was initially tachycardic, hypertensive and labs showed hyponatremia , hypokalemic. Blood alcohol was negative, and other toxicology was negative as well. After NS administration, K repletion, and treating his Alcohol withdrawal symptoms he became hemodynamically stable and his electrolyte abnormalities resolved. He was started on Ativan/Librium, and tapered off gradually during the course of his stay. His visual, auditory, hallucinations abated; however the patient still, on my final discussion with him, was disturbed by the hallucination/delusions, and felt a sense of derealization. Psychiatry was consulted also and once the patient was medically stable, he was agreeable to transitioning to the psychiatric [place] [facility] 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, denies smoking, admits to alcohol use, denies illicit drug use Review of Systems - Constitutional Constitutional: As Per HPI Past Patient History - Infectious Disease Hx of Infectious Diseases: None - Tetanus Immunizations Tetanus Immunization: Unknown - Past Medical History & Family History Past Medical History?: Yes - Past Social History Smoking Status: Never Smoked - CARDIAC Hx Cardiac Disorders: No - PULMONARY Hx Respiratory Disorders: No - NEUROLOGICAL Hx Neurological Disorder: No - HEENT Hx HEENT Problems: No - RENAL Hx Chronic Kidney Disease: No - ENDOCRINE/METABOLIC Hx Endocrine Disorders: No - HEMATOLOGICAL/ONCOLOGICAL Hx Blood Disorders: Yes Hx Anemia: Yes - INTEGUMENTARY Hx Dermatological Problems: No - MUSCULOSKELETAL/RHEUMATOLOGICAL Hx Musculoskeletal Disorders: No Hx Falls: No - GASTROINTESTINAL Hx Gastrointestinal Disorders: No - GENITOURINARY/GYNECOLOGICAL Hx Genitourinary Disorders: No - PSYCHIATRIC Hx Bipolar Disorder: Yes Hx Substance Use: Yes - SURGICAL HISTORY Hx Surgeries: Yes Other/Comment: Deviated septum - ANESTHESIA Hx Anesthesia: Yes Hx Anesthesia Reactions: No Hx Malignant Hyperthermia: No Meds Allergies/Adverse Reactions: Allergies Allergy/AdvReac Type Severity Reaction Status Date / Time No Known Allergies Allergy Verified 05/15/17 23:58 - Medications Medications: Current Medications Acetaminophen (Tylenol 325mg Tab) 650 mg PO Q4 PRN PRN Reason: Pain, Mild (1-3) Last Admin: 05/15/17 22:06 Dose: 650 mg Al Hydrox/Mg Hydrox/Simethicone (Maalox Plus 30 Ml) 30 ml PO DAILY PRN PRN Reason: Upset Stomach Chlordiazepoxide (Librium) 25 mg PO Q8 [facility] PRN Reason: Protocol Last Admin: 05/16/17 09:19 Dose: 25 mg Famotidine (Pepcid) 40 mg PO HS [facility] Last Admin: 05/15/17 22:05 Dose: 40 mg Folic Acid (Folic Acid) 1 mg PO DAILY [facility] Last Admin: 05/16/17 09:18 Dose: 1 mg Magnesium Hydroxide (Milk Of Magnesia) 30 ml PO DAILY PRN PRN Reason: Constipation Mirtazapine (Remeron) 30 mg PO HS [facility] Multivitamins/Minerals (Therapeutic-M Tab) 1 tab PO 0800 [facility] Last Admin: 05/16/17 09:19 Dose: 1 tab Quetiapine Fumarate (Seroquel) 100 mg PO 0800,2200 [facility] PRN Reason: Protocol Thiamine HCl (Vitamin B1 Tab) 100 mg PO DAILY [facility] Last Admin: 05/16/17 09:19 Dose: 100 mg Physical Exam - Constitutional Appears: Well, No Acute Distress - Head Exam Head Exam: ATRAUMATIC, NORMOCEPHALIC - Eye Exam Eye Exam: EOMI, Normal appearance, PERRL - ENT Exam ENT Exam: Mucous Membranes Moist, Normal Oropharynx - Neck Exam Neck exam: Positive for: Normal Inspection. Negative for: Lymphadenopathy, Thyromegaly - Respiratory Exam Respiratory Exam: Clear to Auscultation Bilateral, NORMAL BREATHING PATTERN. absent: Rales - Cardiovascular Exam Cardiovascular Exam: RRR, +S1, +S2 - GI/Abdominal Exam GI & Abdominal Exam: Normal Bowel Sounds, Soft. absent: Distended, Rigid - Extremities Exam Extremities exam: Positive for: normal inspection. Negative for: calf tenderness, joint swelling, pedal edema - Back Exam Back exam: NORMAL INSPECTION. absent: CVA tenderness (L), CVA tenderness (R) - Neurological Exam Neurological exam: Alert, CN II-XII Intact, Oriented x3 - Psychiatric Exam Psychiatric exam: Depressed - Skin Skin Exam: Dry, Intact, Normal Color, Warm Results - Vital Signs Recent Vital Signs: Last Vital Signs Temp 97.6 F 05/16/17 07:40 Pulse 93 H 05/16/17 07:40 Resp 20 05/16/17 07:40 BP 137/106 H 05/16/17 07:40 Pulse Ox 100 05/15/17 20:03 - Labs Labs: Laboratory Results - last 24 hr 05/16/17 05/16/17 07:45 07:45 Fasting Glucose 86 Triglycerides 279 H Cholesterol 187 LDL Cholesterol Direct 134 H HDL Cholesterol 33 Free T4 1.09 TSH 3rd Generation 3.70 Assessment & Plan - Assessment and Plan (Free Text) Assessment: 51 year old male with past medical history of alcohol abuse and bipolar disorder who presented with alcohol withdrawal and hallucinations. His symptoms improved with libium and ativan as needed. He was on multivitamin , folic acid and thiamine. He was counselled on alcohol abstinence. He was seen and evaluated by psychiatry and accepted to go up to 5b psychiatric unit. We will follow him from there Plan: 1) Alcohol withdrawal - Patient denies any hallucinations at the current time of my examination, was not tachycardic or hypertensive. - Alcohol withdrawal precautions - C/W Thiamine 100 mg, Folate 1 mg, MV PO - CIWA protocol, seizure precautions, telemetry monitoring discontinued at this time - Psychiatry consulted Dr. Everett: left message with nurse on 5B. 2) Hyponatremia has resolved. 3) Bipolar Disorder: psychiatry consulted, Dr. Everett, currently managing patient as in psychiatry - If at any time the patient becomes medically unstable, we would be delighted to be consulted. Thank you for allowing us in participating in the care of your patient. - Date & Time Date: 05/16/17 Time: 07:00 <Anant Lopez - Last Filed: 05/18/17 11:55> Meds - Medications Medications: Current Medications Acetaminophen (Tylenol 325mg Tab) 650 mg PO Q4 PRN PRN Reason: Pain, Mild (1-3) Last Admin: 05/17/17 14:19 Dose: 650 mg Al Hydrox/Mg Hydrox/Simethicone (Maalox Plus 30 Ml) 30 ml PO DAILY PRN PRN Reason: Upset Stomach Chlordiazepoxide (Librium) 25 mg PO BID [facility] PRN Reason: Protocol Last Admin: 05/18/17 08:25 Dose: 25 mg Famotidine (Pepcid) 40 mg PO HS [facility] Last Admin: 05/17/17 21:42 Dose: 40 mg Fluoxetine HCl (Prozac) 20 mg PO DAILY [facility] Last Admin: 05/18/17 08:25 Dose: 20 mg Folic Acid (Folic Acid) 1 mg PO DAILY [facility] Last Admin: 05/18/17 08:25 Dose: 1 mg Magnesium Hydroxide (Milk Of Magnesia) 30 ml PO DAILY PRN PRN Reason: Constipation Mirtazapine (Remeron) 30 mg PO HS [facility] Last Admin: 05/17/17 21:43 Dose: 30 mg Multivitamins/Minerals (Therapeutic-M Tab) 1 tab PO 0800 [facility] Last Admin: 05/18/17 08:26 Dose: 1 tab Quetiapine Fumarate (Seroquel) 150 mg PO 0800,2200 [facility] PRN Reason: Protocol Last Admin: 05/18/17 08:25 Dose: 150 mg Thiamine HCl (Vitamin B1 Tab) 100 mg PO DAILY [facility] Last Admin: 05/18/17 08:26 Dose: 100 mg Results - Vital Signs Recent Vital Signs: Last Vital Signs Temp 97.3 F L 05/18/17 06:54 Pulse 84 05/18/17 06:54 Resp 20 05/18/17 06:54 BP 117/70 05/18/17 06:54 Pulse Ox 100 05/15/17 20:03 Attending/Attestation - Attestation I have personally seen and examined this patient.: Yes I have fully participated in the care of the patient.: Yes I have reviewed all pertinent clinical information: Yes Notes (Text): 05/18/17 11:49 MEDICAL CONSULTATION 51 year old male with past medical history of alcohol abuse and bipolar/ depression who presented with alcohol withdrawal and hallucinations. His withdrawal symptoms and hallucinations have improved. He was transferred to inpatient psychiatric unit. Continue with librium taper as per psychiatrist. He is on multivitamin, folic acid and thiamine. He was counselled on alcohol abstinence. Chart and labs were reviewed. TFTs are normal. LDL is 134. He was counselled on diet modifications with low fat, low cholesterol diet. Thank you Dr. Siddiqui for allowing us to participate in the care of this patient. Please reconsult as needed. Anant Lopez MD Hospitalist.
--- NOTE | 2017-05-16 17:39 | PCM.PSYCH ---
Initial Psychiatric Evaluation - Initial Psychiatric Evaluation Type of Admission: Voluntary Legal Status: Capacity (patient has capacity to sign consent for treatment) Chief Complaint (in patient's own words): "I'm doing a little bit better, but I'm still depressed, hopeless" Patient's Reaction to Hospitalization: patient was transferred from the medical side for evaluation of depressive symptoms, irritability, psychotic symptoms, inability to function. Despite the fact patient had psychiatrist in the community, patient still had manic episodes, self-medicating with alcohol, became psychotic, needs further evaluation and stabilization into the psychiatric inpatient unit and close observation History of Present Illness and Precipitating Events: shortly patient is 51 year old male self reported history of bipolar disorder, currently under care or psychiatrist at [facility], no previous psych admissions, no history of suicidal attempts, patient has history of alcohol use disorder, initially patient was admitted on the medical side for evaluation of visual hallucination and possible delirium tremens due to alcohol withdrawal. Patient was medically stable, was transferred to the psychiatric inpatient unit in May 15, transfer was uneventful. Patient was seen today at the treatment team meeting, patient has mild withdrawal symptoms resenting with upper extremities shakes. Vital signs within normal limits. Patient said that he was self-medicating with alcohol because he had irritability, mind racing, was not able to sleep. despite the fact that patient was compliant with Depakote, which was prescribed by patient psychiatrist, patient still experienced those symptoms and was drinking alcohol about 1 pint of vodka on daily basis. As per patient he stopped drinking on last Saturday and on last Saturday patient started to have visual hallucinations. Hallucinations presented to be a well formed and believable and at the beginning patient had difficulties to identify reality from hallucinations. patient sponsor brought patient to the hospital looking for admission for altered mental status. Patient also reported that he wasn't treated troubleshot which was given to him on March 24, then May 01, next need to be given on 31 of May. In spite of that fact patient was Drinking alcohol. Patient reported that she was depressed and stressed out about the fact that he is mother has terminal illness and she was not able to visit his mother in [place]. Past psychiatric history: admission to the psychiatric inpatient unit because patient required to have alcohol detox but detox didn't have any beds available that's why patient was admitted to psychiatric inpatient unit no history of suicidal attempts. Generalized anxiety symptoms. Medical issues:patient is relatively healthy, but withdrawing from the alcohol. family history: Patient denied family history of suicidal attempts, denied admissions to the psychiatric inpatient unit. atient denied smoking. Lab Results 05/16/17 07:45: Free T4 1.09, TSH 3rd Generation 3.70 05/16/17 07:45: Fasting Glucose 86, Triglycerides 279 H, Cholesterol 187, LDL Cholesterol Direct 134 H, HDL Cholesterol 33 Vital Signs Temp Pulse Resp BP Pulse Ox 05/16/17 16:00 93 H 127/89 05/16/17 07:40 97.6 F 93 H 20 137/106 H 05/15/17 22:00 16 05/15/17 20:03 97.8 F 113 H 18 130/101 H 100 Current Medications: Active Medications Generic Name Dose Route Start Last Admin Trade Name Freq PRN Reason Stop Dose Admin Acetaminophen 650 mg 05/15/17 20:02 05/15/17 22:06 Tylenol 325mg Tab PO 650 mg Q4 PRN Administration Pain, Mild (1-3) Al Hydrox/Mg Hydrox/Simethicone 30 ml 05/15/17 20:02 Maalox Plus 30 Ml PO DAILY PRN Upset Stomach Chlordiazepoxide 25 mg 05/15/17 22:00 05/16/17 13:51 Librium PO 25 mg Q8 [facility] Administration Protocol Famotidine 40 mg 05/15/17 22:00 05/15/17 22:05 Pepcid PO 40 mg HS [facility] Administration Folic Acid 1 mg 05/16/17 08:00 05/16/17 09:18 Folic Acid PO 1 mg DAILY [facility] Administration Magnesium Hydroxide 30 ml 05/15/17 20:02 Milk Of Magnesia PO DAILY PRN Constipation Mirtazapine 30 mg 05/16/17 11:26 Remeron PO HS [facility] Multivitamins/Minerals 1 tab 05/16/17 08:00 05/16/17 09:19 Therapeutic-M Tab PO 1 tab 0800 [facility] Administration Quetiapine Fumarate 100 mg 05/16/17 11:26 Seroquel PO 0800,2200 [facility] Protocol Thiamine HCl 100 mg 05/16/17 08:00 05/16/17 09:19 Vitamin B1 Tab PO 100 mg DAILY [facility] Administration Past Psychiatric History - Past Psychiatric History Previous Treatment History: Inpatient Prior Professional Help: see HPI Prior Psychiatric Treatment: see HPI At what hospital: see HPI Duration: see HPI Nature of Treatment: see HPI Explanation of prior treatment: see HPI History of Abuse: atient denied History of ETOH/Drug Use: see HPI History of Family Illness: see HPI Pertinent Medical Hx (Current Medical&Sleep Prob, Allergies): Allergies Allergy/AdvReac Type Severity Reaction Status Date / Time No Known Allergies Allergy Verified 05/15/17 23:58 Divalproex [Depakote DR] 1 tab PO DAILY 05/13/17 Review of Systems - Review of Systems Systems not reviewed;Unavailable: Acuity of Condition - EENT Eyes: As Per HPI Ears: As Per HPI Nose/Mouth/Throat: As Per HPI - Cardiovascular Cardiovascular: As Per HPI - Respiratory Respiratory: As Per HPI - Gastrointestinal Gastrointestinal: As Per HPI - Genitourinary Genitourinary: As Per HPI - Reproductive: Male Reproductive:Male: As Per HPI - Musculoskeletal Musculoskeletal: As Par HPI - Integumentary Integumentary: As Per HPI - Neurological Neurological: As Per HPI - Psychiatric Psychiatric: As Per HPI - Endocrine Endocrine: As Per HPI - Hematologic/Lymphatic Hematologic: As Per HPI Mental Status Examination - Personal Presentation Personal Presentation: Looks stated age - Affect Affect: Flat - Motor Activity Motor Activity: Calm - Reliability in Providing Information Reliability in Providing Information: Fair - Speech Speech: Organized - Mood Mood: Depressed, Anxious - Formal Thought Process Formal Thought Process: No Impairment - Obsessions/Compulsions Obsessions: None Compulsions: None - Cognitive Functions Orientation: Person Sensorium: Alert Attention/Concentration: Easily distracted Estimate of Intelligence: Average Judgement: Intact, as evidence by: Insight regarding need for hospitalization - Risk Risk: Withdrawal, Other - Strength & Assets Inventory Strength & Assets Inventory: Intelligence, Life experience, Cooperative - Limitations Limitations: Other (aalcohol use disorder) DSM 5 DX - DSM 5 DSM 5 Diagnosis: rule out bipolar disorder type II Alcohol use disorder Alcohol withdrawal deliriumimproved - Recommended/Plan of Treatment Treatment Recommendations and Plan of Treatment: ilieu, structure, supportive therapy Multivitamins thiamine and folic acid Librium tapering protocol Remeron 30 mg at the nighttime Seroquel 100 mg twice a day Patient is on Vivitrol shot next dose needs to be give on May 31 Follow-up at [facility] pull worker evaluation Projected ELOS: 5 days Prognosis: fair Discharge Plan and Discharge Criteria: Pt will be not depressed or manic, will be more hopeful, will be not psychotic or anxious, will be not having thoughts of harming self or others, will be tolerating medications well, will not have major side effects, will be able to function, will not pose threat to self or others. - Smoking Cessation Smoking Cessation Initiated: No Reason for not providing: Denied smoking
[2017-05-17] MEDS: Multivitamin With Minerals Tab PO SCH (08:05)
--- NOTE | 2017-05-17 14:50 | PCM.PYCHPN ---
Psychiatric Progress Note - Psychiatric Progress Note Patient seen today, length of contact: 30 minutes Patient Chief Complaint: "I'm not doing that well today, I feel very depressed and groggy" Problems Identified/Issues Discussed: Suicide/ homicide prevention, past psychiatric h/o, current psychiatric symptoms , medical problems, risk/benefits and alternatives of medications, medications compliance, coping strategies, substance abuse h/o, relapse prevention, importance of follow up with psychiatrist and therapist, discharge plan. Medical Problems: patient is relatively healthy, withdrawal symptoms are better Diagnostic Results: Lab Results 05/16/17 07:45: RPR Nonreactive 05/16/17 07:45: Free T4 1.09, TSH 3rd Generation 3.70 05/16/17 07:45: Fasting Glucose 86, Triglycerides 279 H, Cholesterol 187, LDL Cholesterol Direct 134 H, HDL Cholesterol 33 Vital Signs Temp Pulse Resp BP Pulse Ox 05/17/17 07:22 97.2 F L 98 H 20 119/87 05/16/17 16:00 93 H 127/89 05/16/17 07:40 97.6 F 93 H 20 137/106 H 05/15/17 22:00 16 05/15/17 20:03 97.8 F 113 H 18 130/101 H 100 DSM 5 Symptoms Update: shortly patient is 51 year old male self reported history of bipolar disorder, currently under care or psychiatrist at [facility], no previous psych admissions, no history of suicidal attempts, patient has history of alcohol use disorder, initially patient was admitted on the medical side for evaluation of visual hallucination and possible delirium tremens due to alcohol withdrawal. Patient was medically stable, was transferred to the psychiatric inpatient unit in May 15, transfer was uneventful. Patient was seen today at the treatment team meeting, pt said that "today I have a very bad day...", pt said he feels hopeless and helpless, worthless and guilty. Pt also reported that he has mind racing. pt grieving over the of his mother. no hallucinations. pt is visible in the unit, started to socialize with others. pt denied any withdrawal symptoms. pt tolerates meds well, no side effects observed or reported. AIMS 0, no EPS. IMpression: DSM 5 Diagnosis: rule out bipolar disorder type II Alcohol use disorder Alcohol withdrawal delirium improved Medication Change: Yes (Seroquel increased Librium decreased) Medical Record Reviewed: Yes Consults ordered or reviewed: medical consult appreciated Mental Status Examination - Cognitive Function Orientation: Person Memory: Intact Attention: Poor Concentration: Poor Association: WNL Fund of Knowledge: WNL - Mood Mood: Depressed, Anxious - Affect Affect: Flat - Formal Thought Process Formal Thought Process: No Impairment - Suicidal Ideation Suicidal Ideation: No - Homicidal Ideation Homicidal Ideation: No Goal/Treatment Plan - Goal/Treatment Plan Need for Continued Stay: Remain at risks for inpatient hospitalization, Severe depression anxiety, Discharge may exacerbated symptoms, Severe functional impairment Progress Toward Problem(s) and Goals/Treatment Plan: ilieu, structure, supportive therapy Multivitamins thiamine and folic acid Librium tapering protocol Remeron 30 mg at the nighttime Seroquel 150 mg twice a day Prozac 20 mg daily started for depression/anxiety Patient is on Vivitrol shot next dose needs to be give on May 31 Follow-up at [facility] organic lab worker evaluation Estimated Date of D/C: 05/22/17 (will monitor closely)
[2017-05-18] MEDS: Multivitamin With Minerals Tab PO SCH (08:26)
--- NOTE | 2017-05-18 08:56 | PCM.PYCHPN ---
Psychiatric Progress Note - Psychiatric Progress Note Patient seen today, length of contact: 25 minutes Patient Chief Complaint: "tired and achy" Problems Identified/Issues Discussed: I reviewed assessment and recent notes. Patient was interviewed at bedside. He is calm, unkempt and oriented to month, location and year. Patient indicates he feels tired and achy. He appears depressed. Denies other concerns, denies tremors or hallucinations. Responses are brief and relevant to questioning. Thought process is coherent. Presently he denies any new side effects, or additional pain or discomfort. Nursing notes indicate that patient has been manageable and attending groups. There were no behavioral issues overnight. Diagnostic Results: rule out bipolar disorder type II Alcohol use disorder Alcohol withdrawal delirium improved Medication Change: No ( ) Medical Record Reviewed: Yes Mental Status Examination - Cognitive Function Orientation: Person Memory: Intact Attention: Poor Concentration: Poor Association: WNL Fund of Knowledge: WNL - Mood Mood: Depressed ("tired and achy"), Anxious - Affect Affect: Constricted, Flat - Formal Thought Process Formal Thought Process: No Impairment - Suicidal Ideation Suicidal Ideation: No - Homicidal Ideation Homicidal Ideation: No Goal/Treatment Plan - Goal/Treatment Plan Need for Continued Stay: Remain at risks for inpatient hospitalization, Severe depression anxiety, Discharge may exacerbated symptoms, Severe functional impairment Progress Toward Problem(s) and Goals/Treatment Plan: * c/w current tx and plan * Taper librium as tolerated * No new weekend labs thus far * Vitals reviewed and noted below: Selected Entries 05/17/17 05/17/17 07:22 16:00 Temperature 97.2 F L Pulse Rate 98 H 96 H Respiratory 20 Rate Blood Pressure 119/87 129/61 Estimated Date of D/C: 05/22/17 (will monitor closely)
--- NOTE | 2017-05-19 08:48 | PCM.PYCHPN ---
Psychiatric Progress Note - Psychiatric Progress Note Patient seen today, length of contact: 25 minutes Patient Chief Complaint: "good, better" Problems Identified/Issues Discussed: I reviewed recent notes and interviewed patient at bedside. He is calm, unkempt and oriented to month, location and year. Patient indicates he feels "good, better" and affect is more reactive today. Denies other concerns, denies tremors or hallucinations. Slept well last night. Responses are coherent and relevant to questioning. Presently he denies any new side effects, or additional pain or discomfort. Nursing notes indicate that patient has been manageable, interacting with select peers and attending groups. There were no behavioral issues over the weekend. Diagnostic Results: rule out bipolar disorder type II Alcohol use disorder Alcohol withdrawal delirium improved Medication Change: Yes (Decreased librium 25 mg po bid to 25 mg HS on 05/19/17) Medical Record Reviewed: Yes Mental Status Examination - Cognitive Function Orientation: Person Memory: Intact Attention: WNL Concentration: Poor Association: WNL Fund of Knowledge: WNL - Mood Mood: Depressed ("good, better"), Anxious - Affect Affect: Constricted, Flat - Formal Thought Process Formal Thought Process: No Impairment - Suicidal Ideation Suicidal Ideation: No - Homicidal Ideation Homicidal Ideation: No Goal/Treatment Plan - Goal/Treatment Plan Need for Continued Stay: Remain at risks for inpatient hospitalization, Severe depression anxiety, Discharge may exacerbated symptoms, Severe functional impairment Progress Toward Problem(s) and Goals/Treatment Plan: * c/w current tx and plan * Decreased librium 25 mg po bid to 25 mg HS on 05/19/17. Continue taper as tolerated * No new weekend labs thus far * Vitals reviewed and noted below: Selected Entries 05/18/17 06:54 Temperature 97.3 F L Pulse Rate 84 Respiratory 20 Rate Blood Pressure 117/70 Estimated Date of D/C: 05/22/17 (will monitor closely)
[2017-05-19] MEDS: Multivitamin With Minerals Tab PO SCH (09:59)
[2017-05-20] MEDS: Multivitamin With Minerals Tab PO SCH (09:35)
--- NOTE | 2017-05-20 14:05 | PCM.PYCHPN ---
Psychiatric Progress Note - Psychiatric Progress Note Patient seen today, length of contact: 30 minute Patient Chief Complaint: "I'm not feeling any better, but my mind racing is slowing down" Problems Identified/Issues Discussed: Suicide/ homicide prevention, past psychiatric h/o, current psychiatric symptoms , medical problems, risk/benefits and alternatives of medications, medications compliance, coping strategies, substance abuse h/o, relapse prevention, importance of follow up with psychiatrist and therapist, discharge plan. Medical Problems: patient is relatively healthy, withdrawal symptoms are better Diagnostic Results: Lab Results 05/16/17 07:45: RPR Nonreactive 05/16/17 07:45: Free T4 1.09, TSH 3rd Generation 3.70 05/16/17 07:45: Fasting Glucose 86, Triglycerides 279 H, Cholesterol 187, LDL Cholesterol Direct 134 H, HDL Cholesterol 33 Vital Signs Temp Pulse Resp BP Pulse Ox 05/17/17 07:22 97.2 F L 98 H 20 119/87 05/16/17 16:00 93 H 127/89 05/16/17 07:40 97.6 F 93 H 20 137/106 H 05/15/17 22:00 16 05/15/17 20:03 97.8 F 113 H 18 130/101 H 100 Temp Pulse Resp BP Pulse Ox 97.3 F L 86 20 129/86 100 05/20/17 07:33 05/20/17 07:33 05/20/17 07:33 05/20/17 07:33 05/15/17 20:03 DSM 5 Symptoms Update: shortly patient is 51 year old male self reported history of bipolar disorder, currently under care or psychiatrist at [facility], no previous psych admissions, no history of suicidal attempts, patient has history of alcohol use disorder, initially patient was admitted on the medical side for evaluation of visual hallucination and possible delirium tremens due to alcohol withdrawal. Patient was medically stable, was transferred to the psychiatric inpatient unit in May 15, transfer was uneventful. Patient was seen today at the treatment team room, pt said she is not feeling any better, patient reported that she feels depressed, hopeless and helpless, but patient said "my mind is less racing". pt was willing to change his prozac to wellbutrin and increase remeron. pt grieving over the of his mother. no hallucinations. pt is visible in the unit, started to socialize with others. pt denied any withdrawal symptoms. pt tolerates meds well, no side effects observed or reported. AIMS 0, no EPS. IMpression: DSM 5 Diagnosis: rule out bipolar disorder type II Alcohol use disorder Alcohol withdrawal delirium improved Medication Change: Yes (d/c librium, prozac d/c, wellbutrin started, remeron increased, seroquel in) Medical Record Reviewed: Yes Consults ordered or reviewed: medical consult appreciated Mental Status Examination - Cognitive Function Orientation: Person Memory: Intact Attention: WNL Concentration: Poor Association: WNL Fund of Knowledge: WNL - Mood Mood: Depressed ("good, better"), Anxious - Affect Affect: Constricted, Flat - Formal Thought Process Formal Thought Process: No Impairment - Suicidal Ideation Suicidal Ideation: No - Homicidal Ideation Homicidal Ideation: No Goal/Treatment Plan - Goal/Treatment Plan Need for Continued Stay: Remain at risks for inpatient hospitalization, Severe depression anxiety, Discharge may exacerbated symptoms, Severe functional impairment Progress Toward Problem(s) and Goals/Treatment Plan: ilieu, structure, supportive therapy Multivitamins thiamine and folic acid Librium DC'd today Remeron 45 mg at the nighttime Seroquel 200 mg twice a day Prozac discontinued Wellbutrin 75 mg twice a day Patient is on Vivitrol shot next dose needs to be give on May 31 Follow-up at [facility] workers compensation paralegal evaluation Estimated Date of D/C: 05/22/17 (will monitor closely)
[2017-05-21] MEDS: Multivitamin With Minerals Tab PO SCH (08:58)
--- NOTE | 2017-05-21 13:59 | PCM.PYCHPN ---
Psychiatric Progress Note - Psychiatric Progress Note Patient seen today, length of contact: 30 minute Patient Chief Complaint: "I'm not feeling any better..., but I slept well" Problems Identified/Issues Discussed: Suicide/ homicide prevention, past psychiatric h/o, current psychiatric symptoms , medical problems, risk/benefits and alternatives of medications, medications compliance, coping strategies, substance abuse h/o, relapse prevention, importance of follow up with psychiatrist and therapist, discharge plan. Medical Problems: patient is relatively healthy, withdrawal symptoms are better Diagnostic Results: Lab Results 05/16/17 07:45: RPR Nonreactive 05/16/17 07:45: Free T4 1.09, TSH 3rd Generation 3.70 05/16/17 07:45: Fasting Glucose 86, Triglycerides 279 H, Cholesterol 187, LDL Cholesterol Direct 134 H, HDL Cholesterol 33 Vital Signs Temp Pulse Resp BP Pulse Ox 05/17/17 07:22 97.2 F L 98 H 20 119/87 05/16/17 16:00 93 H 127/89 05/16/17 07:40 97.6 F 93 H 20 137/106 H 05/15/17 22:00 16 05/15/17 20:03 97.8 F 113 H 18 130/101 H 100 Temp Pulse Resp BP Pulse Ox 97.3 F L 86 20 129/86 100 05/20/17 07:33 05/20/17 07:33 05/20/17 07:33 05/20/17 07:33 05/15/17 20:03 DSM 5 Symptoms Update: shortly patient is 51 year old male self reported history of bipolar disorder, currently under care or psychiatrist at [facility], no previous psych admissions, no history of suicidal attempts, patient has history of alcohol use disorder, initially patient was admitted on the medical side for evaluation of visual hallucination and possible delirium tremens due to alcohol withdrawal. Patient was medically stable, was transferred to the psychiatric inpatient unit in May 15, transfer was uneventful. Patient was seen today at the treatment team room, pt said he is not feeling any better, but obviously pt is socializing more, visible at the unit, has good appetite and sleep. patient reported that she feels depressed, hopeless and helpless. pt grieving over the of his mother. no hallucinations. pt tolerates meds well, no side effects observed or reported. AIMS 0, no EPS. IMpression: DSM 5 Diagnosis: rule out bipolar disorder type II Alcohol use disorder Alcohol withdrawal delirium improved Medication Change: Yes (d/c librium, prozac d/c, wellbutrin started, remeron increased, seroquel in) Medical Record Reviewed: Yes Consults ordered or reviewed: medical consult appreciated Mental Status Examination - Cognitive Function Orientation: Person Memory: Intact Attention: WNL Concentration: Poor Association: WNL Fund of Knowledge: WNL - Mood Mood: Depressed ("I don't feel any better"), Anxious - Affect Affect: Constricted, Flat - Formal Thought Process Formal Thought Process: No Impairment - Suicidal Ideation Suicidal Ideation: No - Homicidal Ideation Homicidal Ideation: No Goal/Treatment Plan - Goal/Treatment Plan Need for Continued Stay: Remain at risks for inpatient hospitalization, Severe depression anxiety, Discharge may exacerbated symptoms, Severe functional impairment Progress Toward Problem(s) and Goals/Treatment Plan: ilieu, structure, supportive therapy Multivitamins thiamine and folic acid Remeron 45 mg at the nighttime Seroquel 200 mg twice a day will increase Wellbutrin 100 mg twice a day Patient is on Vivitrol shot next dose needs to be give on May 31 Follow-up at [facility] evaluation Estimated Date of D/C: 05/24/17 (pt did not notice any improvement)
[2017-05-22] MEDS: Multivitamin With Minerals Tab PO SCH (07:54)
--- NOTE | 2017-05-22 16:11 | PCM.PYCHPN ---
Psychiatric Progress Note - Psychiatric Progress Note Patient seen today, length of contact: 30 minute Patient Chief Complaint: "I'm not feeling any better I think..." Problems Identified/Issues Discussed: Suicide/ homicide prevention, past psychiatric h/o, current psychiatric symptoms , medical problems, risk/benefits and alternatives of medications, medications compliance, coping strategies, substance abuse h/o, relapse prevention, importance of follow up with psychiatrist and therapist, discharge plan. Medical Problems: patient is relatively healthy, withdrawal symptoms are better Diagnostic Results: Lab Results 05/16/17 07:45: RPR Nonreactive 05/16/17 07:45: Free T4 1.09, TSH 3rd Generation 3.70 05/16/17 07:45: Fasting Glucose 86, Triglycerides 279 H, Cholesterol 187, LDL Cholesterol Direct 134 H, HDL Cholesterol 33 Vital Signs Temp Pulse Resp BP Pulse Ox 05/17/17 07:22 97.2 F L 98 H 20 119/87 05/16/17 16:00 93 H 127/89 05/16/17 07:40 97.6 F 93 H 20 137/106 H 05/15/17 22:00 16 05/15/17 20:03 97.8 F 113 H 18 130/101 H 100 Temp Pulse Resp BP Pulse Ox 97.3 F L 86 20 129/86 100 05/20/17 07:33 05/20/17 07:33 05/20/17 07:33 05/20/17 07:33 05/15/17 20:03 DSM 5 Symptoms Update: shortly patient is 51 year old male self reported history of bipolar disorder, currently under care or psychiatrist at [facility], no previous psych admissions, no history of suicidal attempts, patient has history of alcohol use disorder, initially patient was admitted on the medical side for evaluation of visual hallucination and possible delirium tremens due to alcohol withdrawal. Patient was medically stable, was transferred to the psychiatric inpatient unit in May 15, transfer was uneventful. Patient was seen today at the dinning area, pt said he is not feeling any better , but obviously pt is socializing more, visible at the unit, has good appetite and sleep. pt was advised to speak to the SW about d/c plan, pt said he might be going to [place] to stay with his step dad. patient reported that he feels depressed, hopeless and helpless. pt grieving over the of his mother. no hallucinations. pt tolerates meds well, no side effects observed or reported. AIMS 0, no EPS. IMpression: DSM 5 Diagnosis: rule out bipolar disorder type II Alcohol use disorder Alcohol withdrawal delirium improved Medication Change: No (increased yesterday) Medical Record Reviewed: Yes Mental Status Examination - Cognitive Function Orientation: Person Memory: Intact Attention: WNL Concentration: Poor Association: WNL Fund of Knowledge: WNL - Mood Mood: Depressed ("I don't feel any better"), Anxious - Affect Affect: Constricted, Flat - Formal Thought Process Formal Thought Process: No Impairment - Suicidal Ideation Suicidal Ideation: No - Homicidal Ideation Homicidal Ideation: No Goal/Treatment Plan - Goal/Treatment Plan Need for Continued Stay: Remain at risks for inpatient hospitalization, Severe depression anxiety, Discharge may exacerbated symptoms, Severe functional impairment Progress Toward Problem(s) and Goals/Treatment Plan: ilieu, structure, supportive therapy Multivitamins thiamine and folic acid Remeron 45 mg at the nighttime Seroquel 200 mg twice a day Wellbutrin 100 mg twice a day Patient is on Vivitrol shot next dose needs to be give on May 31 Follow-up at [facility] side door worker evaluation Estimated Date of D/C: 05/24/17 (pt did not notice any improvement)
[2017-05-23 06:45] VITALS: O2SAT 98
[2017-05-23] MEDS: Multivitamin With Minerals Tab PO SCH (08:11)
--- NOTE | 2017-05-23 16:16 | PCM.PYCHPN ---
Psychiatric Progress Note - Psychiatric Progress Note Patient seen today, length of contact: 30 minute Patient Chief Complaint: "I feel little better Problems Identified/Issues Discussed: Suicide/ homicide prevention, past psychiatric h/o, current psychiatric symptoms , medical problems, risk/benefits and alternatives of medications, medications compliance, coping strategies, substance abuse h/o, relapse prevention, importance of follow up with psychiatrist and therapist, discharge plan. Medical Problems: patient is relatively healthy, withdrawal symptoms are better Diagnostic Results: Lab Results 05/16/17 07:45: RPR Nonreactive 05/16/17 07:45: Free T4 1.09, TSH 3rd Generation 3.70 05/16/17 07:45: Fasting Glucose 86, Triglycerides 279 H, Cholesterol 187, LDL Cholesterol Direct 134 H, HDL Cholesterol 33 Vital Signs Temp Pulse Resp BP Pulse Ox 05/17/17 07:22 97.2 F L 98 H 20 119/87 05/16/17 16:00 93 H 127/89 05/16/17 07:40 97.6 F 93 H 20 137/106 H 05/15/17 22:00 16 05/15/17 20:03 97.8 F 113 H 18 130/101 H 100 Temp Pulse Resp BP Pulse Ox 97.3 F L 86 20 129/86 100 05/20/17 07:33 05/20/17 07:33 05/20/17 07:33 05/20/17 07:33 05/15/17 20:03 DSM 5 Symptoms Update: shortly patient is 51 year old male self reported history of bipolar disorder, currently under care or psychiatrist at [facility], no previous psych admissions, no history of suicidal attempts, patient has history of alcohol use disorder, initially patient was admitted on the medical side for evaluation of visual hallucination and possible delirium tremens due to alcohol withdrawal. Patient was medically stable, was transferred to the psychiatric inpatient unit in May 15, transfer was uneventful. Patient was seen today at the dinning area, pt said he feels better, obviously pt is socializing more, visible at the unit, has good appetite and sleep. pt was advised to speak to the about d/c plan, pt said he might be going to [place] to stay with his step dad. patient denied feeling off depressed, patient is more hopeful for the future no hallucinations. pt tolerates meds well, no side effects observed or reported. AIMS 0, no EPS. IMpression: DSM 5 Diagnosis: rule out bipolar disorder type II Alcohol use disorder Alcohol withdrawal delirium improved Medication Change: Yes (Wellbutrin increased) Medical Record Reviewed: Yes Mental Status Examination - Cognitive Function Orientation: Person Memory: Intact Attention: WNL Concentration: Poor (improved) Association: WNL Fund of Knowledge: WNL - Mood Mood: Depressed (I feel better), Anxious (mproved) - Affect Affect: Constricted (but reactive) - Speech Speech: Appropriate - Formal Thought Process Formal Thought Process: No Impairment - Suicidal Ideation Suicidal Ideation: No - Homicidal Ideation Homicidal Ideation: No Goal/Treatment Plan - Goal/Treatment Plan Need for Continued Stay: Remain at risks for inpatient hospitalization, Severe depression anxiety, Discharge may exacerbated symptoms, Severe functional impairment Progress Toward Problem(s) and Goals/Treatment Plan: ilieu, structure, supportive therapy Multivitamins thiamine and folic acid Remeron 45 mg at the nighttime Seroquel 200 mg twice a day Wellbutrin XL300 mg for depression daily Patient is on Vivitrol shot next dose needs to be give on May 31 Follow-up at [facility] residential support worker evaluation Estimated Date of D/C: 05/24/17 (pt did not notice any improvement)
[2017-05-24 07:01] VITALS: BP 130/89; PULSE 85; RESP 20; TEMP 97.5
[2017-05-24] MEDS ORDERED: buPROPion 300 mg/24 Hours XL Tab PO SCH (08:00)
[2017-05-24] MEDS: Multivitamin With Minerals Tab PO SCH (08:30)
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
== END 2017-05-24 15:20 | disposition home or self-care (01) | DRG 430 ==
LOC: PSYC 19:11
PROVIDERS: ADMIT Psychiatry & Neurology Psychiatry; ATTEND Psychiatry & Neurology Psychiatry
PROC: GZ3ZZZZ Medication Management (ICD-10-PCS; principal; 2017-05-15)
PROC: HZ2ZZZZ Detoxification Services for Substance Abuse Treatment (ICD-10-PCS; 2017-05-15)
DX: F31.81 Bipolar II disorder (principal); F10.231 Alcohol dependence with withdrawal delirium; F41.1 Generalized anxiety disorder; I10 Essential (primary) hypertension